=== PATIENT | male | born 1940 | race Caucasian/White ===

== ENCOUNTER 2018-02-09 12:05 | Emergency (ER) | payer MEDICARE ==
[~2018-02-09] VITALS: Ht 177.8 cm; Wt 65.0 kg
[~2018-02-09 12:05] MED LIST: ARTIDRO EACH EYE; ARTISOL2 EACH EYE; CARB25TA16 PO; FURO40TA PO; METO1TAB9 PO; POTA-163 PO; ROTI8DIS T-DERMAL; SPIR25TA PO; SYST0.4D2 EACH EYE; TERA5CAP3 PO; WARF-20 PO
[2018-02-09 12:26] VITALS: BP 156/108; PULSE 77; RESP 16; TEMP 98.2; O2SAT 100
--- NOTE | 2018-02-09 13:35 | RADRPT ---
EXAM DATE/TIME: 02/09/2018 13:22 [place] COMPARISON: No previous studies available for comparison. INDICATIONS : Syncope, hit head RADIATION DOSE: 56.35 CTDIvol (mGy) MEDICAL HISTORY : Parkinson's. Hypertension. SURGICAL HISTORY : None. ENCOUNTER: Initial ACUITY: 1 day PAIN SCALE: 0/10 LOCATION: cranial TECHNIQUE: Multiple contiguous axial images were obtained of the head. Using automated exposure control and adj ustment of the mA and/or kV according to patient size, radiation dose was kept as low as reasonably a chievable to obtain optimal diagnostic quality images. DICOM format image data is available electro nically for review and comparison. FINDINGS: There is patchy mild to moderately diminished attenuation in periventricular white matter. No evidenc e of intracranial mass or hemorrhage. As nothing to suggest acute infarction. The ventricles are symm etric and normal. Cisterna magna is mildly prominent. CONCLUSION: Patchy probable chronic ischemic white matter changes. No definite acute findings. Mani Naranjo MD on February 09, 2018 at 13:32 Board Certified Radiologist. This report was verified electronically.
== END 2018-02-09 13:32 | disposition left against medical advice (07) ==
LOC: NED 12:05
DX: R55 Syncope and collapse (principal)
CPT/HCPCS: 70450; 99281

== ENCOUNTER 2018-08-05 12:13 | Observation (INO) ==
--- NOTE | 2018-08-05 12:58 | ED ---
HPI General Chief Complaint: Dizziness Stated Complaint: Dizzyness Time Seen by Provider: 08/05/18 12:16 Source: patient Mode of arrival: ambulatory Limitations: no limitations History of Present Illness HPI Narrative: Patient is a 78-year-old male that presents via EMS for the evaluation of dizziness that the patient states has been going on for the past 1 -2months. The patient states that today he and his went to see a provider at an urgent care clinic because last night he had a dizzy episode that caused him to fall on his knees. The provider at the urgent care recommended that he been seen in the ER. The patient stats that he has been feeling dizzy and falling more than usual. He states that a couple of days ago he fell within his home and hit the front of his head and left lower back. The patient states that he is currently experiencing pain of his left lower back which he states has been constant since his fall a couple of days ago. He rates his pain as a 6/10 on a pain scale. The patient denies any knee pain from his fall yesterday. The patient describes his dizziness as a sensation that the room is slowly spinning around him. He says that the episodes last around 20 seconds. He denies ever feeling like he has lost consciousness and he remembers everything before and after the dizziness episode. Upon review of symptoms he reports fatigue, and some shortness of breath upon exertion which he states is normal for him. He denies chest pain or palpitations. He denies nausea, vomiting. He denies headache, numbness, or any paraesthesias of the upper or lower extremities. Related Data Home Medications Medication Instructions Recorded Confirmed carbidopa-levodopa 1 tab PO 5 TIMES A DAY 08/05/18 08/05/18 furosemide 20 mg PO DAILY 08/05/18 08/05/18 metoprolol succinate 1.5 tab PO DAILY 08/05/18 08/05/18 spironolactone 25 mg PO DAILY 08/05/18 08/05/18 tamsulosin 0.4 mg PO DAILY 08/05/18 08/05/18 thiamine HCl (vitamin B1) 50 mg PO DAILY 08/05/18 08/05/18 warfarin 2.5 mg PO 3XW 08/05/18 08/05/18 warfarin 3 mg PO 4XW 08/05/18 08/05/18 Allergies Allergy/AdvReac Type Severity Reaction Status Date / Time No Known Allergies Allergy Uncoded 08/16/17 11:14 Review of Systems ROS: all other systems reviewed are negative FOR[facility]LY [facility] Medical History Medical History Afib (Acute) Hypertension (Acute) Parkinson disease (Acute) Social History Social History Substance History: No History of Abuse Second Hand Smoke Exposure: No Smoking Status: Never smoker How Often Do You Have a Drink Containing Alcohol: Never Recent Travel in [facility] within the Last 8 Weeks: No Recent Out of Country Travel within the Last 8 Weeks: No Immunization History Tetanus Immunization: Unsure Hx Influenza Vaccine This Season: Yes Exam Narrative Exam Narrative: GENERAL: Anxious, well groomed SKIN: Warm and dry. HEAD: Atraumatic. Normocephalic. EYES: Pupils equal and round. No scleral icterus. No injection or drainage. ENT: No nasal bleeding or discharge. Mucous membranes pink and moist. Tongue is midline. No uvula deviation. NECK: Trachea midline. No JVD. CARDIOVASCULAR: Regular rate and rhythm. RESPIRATORY: No accessory muscle use. Clear to auscultation. Breath sounds equal bilaterally. GASTROINTESTINAL: Abdomen soft, non-tender, nondistended. Hepatic and splenic margins not palpable. MUSCULOSKELETAL: Extremities without clubbing, cyanosis, or edema. No obvious deformities. Full ROM of the upper and lower extremities bilaterally. Bruising on the left side of face and the left upper back. No lumbar, thoracic, cervical tenderness to palpation. NEUROLOGICAL: Awake and alert. No obvious cranial nerve deficits. Motor grossly within normal limits. Five out of 5 muscle strength in the arms and legs. Normal speech. PSYCHIATRIC: Appropriate mood and affect; insight and judgment normal. Course Initial Documented Vital Signs Pulse Rate 87 08/05/18 12:23 Respiratory Rate 18 08/05/18 12:23 Blood Pressure 199/116 H 08/05/18 12:23 Pulse Oximetry 100 08/05/18 12:23 Last Documented Vital Signs Pulse Rate 73 08/05/18 16:30 Respiratory Rate 16 08/05/18 16:30 Blood Pressure 159/75 H 08/05/18 16:30 Pulse Oximetry 100 08/05/18 16:30 Medical Decision Making MDM Narrative Medical decision making narrative: 78 yo male here for evaluation of dizziness and near syncope. Labs and imaging ordered. Labs and imaging showed no sign of acute disease at this time. There is deafly concern for syncope. Recommend admission for further evaluation and treatment. Patient and family agree with this. Case discussed with my attending Dr. Chau who agrees with plan. Case discussed with Dr. Castro who agrees to admission to his service. Medical Screen Exam Complete: Yes Emergency Medical Condition: Yes Differential Diagnosis Differential Diagnosis: syncope vs presyncope vs dizziness vs cardiac disease vs arrhythmia vs electrolyte abnormality vs head injury vs fracture Medical Records Medical records reviewed: Yes I reviewed the patient's medical records. Lab Data Lab results reviewed: Yes I reviewed the patient's lab results. Lab results narrative: troponin negative CKMB negative UA showed some blood. Result diagrams: 08/05/18 12:40 08/05/18 12:40 Lab Results 08/05/18 08/05/18 08/05/18 Range/Units 12:40 12:40 12:40 WBC 7.2 (4.0-11.0) th/mm3 RBC 4.46 L (4.50-5.90) mil/mm3 Hgb 14.5 (13.0-17.0) gm/dL Hct 43.3 (39.0-51.0) % MCV 97.0 (80.0-100.0) fL MCH 32.6 (27.0-34.0) pg MCHC 33.6 (32.0-36.0) % RDW 14.0 (11.6-17.2) % Plt Count 229 (150-450) th/mm3 MPV 7.8 (7.0-11.0) fL Neut % (Auto) 78.4 H (16.0-70.0) % Lymph % (Auto) 11.2 (9.0-44.0) % [place] % (Auto) 7.3 (0.0-8.0) % Eos % (Auto) 2.8 (0.0-4.0) % Baso % (Auto) 0.3 (0.0-2.0) % Neut # (Auto) 5.7 (1.8-7.7) th/mm3 Lymph # (Auto) 0.8 L (1.0-4.8) th/mm3 [place] # (Auto) 0.5 (0.0-0.9) th/mm3 Eos # (Auto) 0.2 (0.0-0.4) th/mm3 Baso # (Auto) 0.0 (0.0-0.2) th/mm3 WBC Differential . Differential Comment Auto diff final PT Cancelled INR Cancelled APTT (24.3-30.1) sec Sodium 139 (136-145) meq/L Potassium 4.9 (3.5-5.1) meq/L Chloride 104 (98-107) meq/L Carbon Dioxide 28.4 (21.0-32.0) meq/L Anion Gap 7 (5-15) meq/L BUN 22 H (7-18) mg/dL Creatinine 1.16 (0.60-1.30) mg/dL Estimated GFR 61 L (>89) mL/min Random Glucose 96 (74-106) mg/dL Calcium 8.7 (8.5-10.1) mg/dL Total Bilirubin 2.1 H (0.2-1.0) mg/dL AST 21 (15-37) U/L ALT 20 (12-78) U/L Alkaline Phosphatase 143 H (45-117) U/L Total Creatine Kinase 59 (39-308) U/L Troponin I Less than 0.02 L (0.02-0.05) ng/mL Total Protein 7.4 (6.4-8.2) g/dL Albumin 3.7 (3.4-5.0) g/dL Urine Color (Yellw/Straw) Urine Clarity (Clear) Urine pH (5.0-8.5) Ur Specific [place] (1.002-1.035) Urine Protein (Neg-Trace) mg/dL Urine Glucose (UA) (Negative) mg/dL Urine Ketones (Negative) mg/dL Urine Occult Blood (Negative) Urine Nitrate (Negative) Urine Bilirubin (Negative) Urine Urobilinogen (Less than 2) mg/dL Ur Leukocyte Esterase (Negative) Urine RBC (0-3) /hpf Urine WBC (0-5) /hpf Ur Squamous Epith Cells (0-5) /hpf Hyaline Casts (0-3) /lpf Urine Mucus (Occasional) /lpf Micro UA Comment Ur Microscopic Review Urine Culture Comments 08/05/18 08/05/18 Range/Units 12:40 13:53 WBC (4.0-11.0) th/mm3 RBC (4.50-5.90) mil/mm3 Hgb (13.0-17.0) gm/dL Hct (39.0-51.0) % MCV (80.0-100.0) fL MCH (27.0-34.0) pg MCHC (32.0-36.0) % RDW (11.6-17.2) % Plt Count (150-450) th/mm3 MPV (7.0-11.0) fL Neut % (Auto) (16.0-70.0) % Lymph % (Auto) (9.0-44.0) % [place] % (Auto) (0.0-8.0) % Eos % (Auto) (0.0-4.0) % Baso % (Auto) (0.0-2.0) % Neut # (Auto) (1.8-7.7) th/mm3 Lymph # (Auto) (1.0-4.8) th/mm3 [place] # (Auto) (0.0-0.9) th/mm3 Eos # (Auto) (0.0-0.4) th/mm3 Baso # (Auto) (0.0-0.2) th/mm3 WBC Differential Differential Comment PT 23.4 H INR 2.3 APTT 31.5 H (24.3-30.1) sec Sodium (136-145) meq/L Potassium (3.5-5.1) meq/L Chloride (98-107) meq/L Carbon Dioxide (21.0-32.0) meq/L Anion Gap (5-15) meq/L BUN (7-18) mg/dL Creatinine (0.60-1.30) mg/dL Estimated GFR (>89) mL/min Random Glucose (74-106) mg/dL Calcium (8.5-10.1) mg/dL Total Bilirubin (0.2-1.0) mg/dL AST (15-37) U/L ALT (12-78) U/L Alkaline Phosphatase (45-117) U/L Total Creatine Kinase (39-308) U/L Troponin I (0.02-0.05) ng/mL Total Protein (6.4-8.2) g/dL Albumin (3.4-5.0) g/dL Urine Color Yellow (Yellw/Straw) Urine Clarity Clear (Clear) Urine pH 6.0 (5.0-8.5) Ur Specific [place] 1.014 (1.002-1.035) Urine Protein Negative (Neg-Trace) mg/dL Urine Glucose (UA) Negative (Negative) mg/dL Urine Ketones Trace H (Negative) mg/dL Urine Occult Blood Small H (Negative) Urine Nitrate Negative (Negative) Urine Bilirubin Negative (Negative) Urine Urobilinogen Less than 2 (Less than 2) mg/dL Ur Leukocyte Esterase Negative (Negative) Urine RBC Less than 1 (0-3) /hpf Urine WBC 1 (0-5) /hpf Ur Squamous Epith Cells <1 (0-5) /hpf Hyaline Casts 3 (0-3) /lpf Urine Mucus Few H (Occasional) /lpf Micro UA Comment Culture not ind Ur Microscopic Review Not Reportable Urine Culture Comments Culture not ind Imaging Data Attestation: I personally reviewed and interpreted this imaging study as follows : Radiologist's impression: Chest X-Ray 08/05/18 12:29 CONCLUSION: 1. Cardiomegaly. 2. No evidence of pulmonary edema or focal pulmonary infiltrate. 3. Degenerative changes and scoliosis of the thoracic spine. Head CT 08/05/18 12:29 CONCLUSION: 1. No acute infarct, acute hemorrhage, midline shift or extra-axial fluid collections. 2. Moderate periventricular and subcortical white matter small vessel ischemic changes bilaterally. 3. CSF collection within the midline of the posterior fossa posteriorly which is stable and may represent a small arachnoid cyst or prominent cisterna magna. . Abdomen/Pelvis CT 08/05/18 14:06 CONCLUSION: 1. Negative for acute traumatic injury. 2. Degenerative changes in the lower lumbar spine 3. Prominent prostate with trabeculated bladder. Chest CT 08/05/18 14:06 CONCLUSION: 1. No pneumothorax. 2. Clustered nodularity in the lingula and medial right middle lobe, likely infectious/inflammatory process. 3. Right atrial enlargement. 4. Minimal anterior wedging of the T12 vertebral body, which can be physiologic. 5. Additional details as above. ECG Data Attestation: I personally reviewed and interpreted this ECG as follows: Interpretation: EKG shows atrial fibrillation but no sign of acute ischemia read by me and attending. Rate of 83 bpm. Discharge Plan Discharge Disposition Patient Disposition: 30 Still Patient Discharge Details Diagnosis: Pre-syncope, Orthostatic hypotension, Fall Physicians Team ED Provider: Shiva Beebe ED Midlevel Provider: Elias Covington Primary Care Provider: UNKNOWN, Attending Provider: Devyn Castro Discharge Interventions Interventions: Vital Signs Last Done: 08/05/18 16:30 Status ED Status: Admitted Observation Patient
[2018-08-05 13:03] LABS: Baso % (Auto) 0.3 % (0.0-2.0); Eos # (Auto) 0.2 th/mm3 (0.0-0.4); Eos % (Auto) 2.8 % (0.0-4.0); Hematocrit 43.3 % (39.0-51.0); Hemoglobin 14.5 gm/dL (13.0-17.0); Lymph # (Auto) 0.8 th/mm3 (1.0-4.8); Lymph % (Auto) 11.2 % (9.0-44.0); Mean Corpuscular HGB Conc 33.6 % (32.0-36.0); Mean Corpuscular Hemoglobin 32.6 pg (27.0-34.0); Mean Platelet Volume 7.8 fL (7.0-11.0); Mono # (Auto) 0.5 th/mm3 (0.0-0.9); Mono % (Auto) 7.3 % (0.0-8.0); Neut # (Auto) 5.7 th/mm3 (1.8-7.7); Neut % (Auto) 78.4 % (16.0-70.0); Platelet Count 229 th/mm3 (150-450); Red Blood Count 4.46 mil/mm3 (4.50-5.90); White Blood Count 7.2 th/mm3 (4.0-11.0)
[2018-08-05 13:13] LABS: Activated Partial Thrombo Time 31.5 sec (24.3-30.1); INR 2.3 Ratio; Prothrombin Time 23.4 sec (9.8-11.6)
[2018-08-05 13:31] LABS: Alanine Aminotransferase 20 U/L (12-78); Albumin 3.7 g/dL (3.4-5.0); Anion Gap 7 meq/L (5-15); Aspartate Aminotransferase 21 U/L (15-37); Blood Urea Nitrogen 22 mg/dL (7-18); Calcium 8.7 mg/dL (8.5-10.1); Carbon Dioxide 28.4 meq/L (21.0-32.0); Chloride 104 meq/L (98-107); Glomerular Filtration Rate 61 mL/min (>89); Glucose,Random 96 mg/dL (74-106); Potassium 4.9 meq/L (3.5-5.1); Sodium 139 meq/L (136-145)
[2018-08-05 13:34] LABS: Alkaline Phosphatase 143 U/L (45-117); Total Protein 7.4 g/dL (6.4-8.2)
--- NOTE | 2018-08-05 13:42 | XR ---
EXAM DATE: 08/05/2018 1:10 PM EDT AGE/SEX: 78 years / Male INDICATIONS: Dizzy and falling. CLINICAL DATA: This is the patient's initial encounter. Patient reports that signs and symptoms have been present for 1 day and indicates a pain score of 0/10. MEDICAL/SURGICAL HISTORY: . a-fib, Parkinson's None. COMPARISON: POI, XR CHEST PA AND LAT, 10/17/2015. . FINDINGS: The heart is enlarged. The pulmonary vascular pattern is normal. The lungs are clear. Degenerative ch anges and scoliosis of the thoracic spine are noted. CONCLUSION: 1. Cardiomegaly. 2. No evidence of pulmonary edema or focal pulmonary infiltrate. 3. Degenerative changes and scoliosis of the thoracic spine. Electronically signed by: Pipo Mccullough MD 08/05/2018 1:41 PM EDT
[2018-08-05 13:45] LABS: Creatine Kinase 59 U/L (39-308)
[2018-08-05 14:17] LABS: Bilirubin,Urine Negative (Negative); Clarity,Urine Clear (Clear); Color,Urine Yellow (Yellw/Straw); Glucose,Urine (UA) Negative (Negative); Hyaline Casts,Urine 3 /lpf (0-3); Leukocyte Esterase,Urine Negative (Negative); Mucus,Urine Few /lpf (Occasional); Nitrite,Urine Negative (Negative); Specific Gravity,Urine 1.014 (1.002-1.035); Squamous Epithelial Cell,Urine <1 /hpf (0-5)
--- NOTE | 2018-08-05 14:17 | CT ---
EXAM DATE: 08/05/2018 2:06 PM EDT AGE/SEX: 78 years / Male INDICATIONS: Dizziness. Syncopal episodes. CLINICAL DATA: This is the patient's initial encounter. Patient reports that signs and symptoms have been present for 3 days and indicates a pain score of 0/10. MEDICAL/SURGICAL HISTORY: Hypertension. Parkinson's disease. A-fib. None. RADIATION DOSE: 56.35 CTDI (mGy) COMPARISON: . TECHNIQUE: CT of the head without contrast. Using automated exposure control and adjustment of the mA and/or kV according to patient size, radiation dose was kept as low as reasonably achievable to ob tain optimal diagnostic quality images. DICOM format image data is available electronically for revi ew and comparison. FINDINGS: Cerebrum: The ventricles are normal for age. No evidence of midline shift, mass lesion, hemorrhage or acute infarction. No extraaxial fluid collections are seen. Moderate periventricular and subcorti tavon white matter small vessel ischemic changes are noted and are stable. Posterior Fossa: The cerebellum and brainstem are intact. The 4th ventricle is midline. The cerebe llopontine angle is unremarkable. There is a CSF collection within the midline of the posterior fossa posteriorly which is stable and may represent a small arachnoid cyst or prominent cisterna magna. Extracranial: The visualized portion of the orbits is intact. Skull: The calvaria is intact. No evidence of skull fracture. CONCLUSION: 1. No acute infarct, acute hemorrhage, midline shift or extra-axial fluid collections. 2. Moderate periventricular and subcortical white matter small vessel ischemic changes bilaterally. 3. CSF collection within the midline of the posterior fossa posteriorly which is stable and may repr esent a small arachnoid cyst or prominent cisterna magna. . Electronically signed by: Pipo Mccullough MD 08/05/2018 2:15 PM EDT
--- NOTE | 2018-08-05 16:20 | CT ---
EXAM DATE: 08/05/2018 3:55 PM EDT AGE/SEX: 78 years / Male INDICATIONS: Trauma, Fall CLINICAL DATA: This is the patient's initial encounter. Patient reports that signs and symptoms have been present for 1 day and indicates a pain score of 0/10. MEDICAL/SURGICAL HISTORY: Hypertension. Atrial Fib, Parkinson's None. RADIATION DOSE: 5.19 CTDI (mGy) ; Combined studies COMPARISON: No prior exams available for comparison. TECHNIQUE: Multiple contiguous axial images were obtained through the chest during bolus infusion of 97ML ml Omnipaque 350 (iohexol) nonionic water-soluble contrast as a cumulative dose for multiple e xams. Images were obtained in suspended respiration using multiple row detector helical technique. Using automated exposure control and adjustment of the mA and/or kV according to patient size, radia tion dose was kept as low as reasonably achievable to obtain optimal diagnostic quality images. DICO M format image data is available electronically for review and comparison. FINDINGS: Lungs: The lungs are symmetrically aerated. Biapical pleural-parenchymal scarring. Minimal atelectas is in the posterior lower lobes. Clustered nodularity in the lingula and medial right middle lobe, li carmela an infectious/inflammatory process. No pneumothorax. Mediastinum: There is good visualization of the great vessels of the middle mediastinum. Atheroscler otic calcification of the aorta, great vessels, and coronary arteries. Right atrial enlargement. No e vidence of mediastinal or hilar adenopathy. Pleurae: No pleural effusion. Axillae: Unremarkable. Bony Structures: Minimal anterior wedging of the T12 vertebral body, which can be physiologic. Mild rightward curvature of the thoracic spine. Diffuse degenerative changes of the spine. Sclerotic foci in the T11 vertebral body, favored to represent bone islands. Miscellaneous: The examination was extended to include the upper abdomen, and both adrenal glands ar e normal in size and configuration. Left renal cyst. Please see separate report from same day CT abdo men/pelvis for further details of the abdomen. CONCLUSION: 1. No pneumothorax. 2. Clustered nodularity in the lingula and medial right middle lobe, likely infectious/inflammatory process. 3. Right atrial enlargement. 4. Minimal anterior wedging of the T12 vertebral body, which can be physiologic. 5. Additional details as above. Electronically signed by: Christina Leigh MD 08/05/2018 4:19 PM EDT
[2018-08-05] MEDS ORDERED: Warfarin Consult Pharmacy OTHER PRN (16:29)
--- NOTE | 2018-08-05 16:32 | CT ---
EXAM DATE: 08/05/2018 3:54 PM EDT AGE/SEX: 78 years / Male INDICATIONS: Trauma, Fall CLINICAL DATA: This is the patient's initial encounter. Patient reports that signs and symptoms have been present for 1 day and indicates a pain score of 0/10. MEDICAL/SURGICAL HISTORY: Hypertension. Atrial Fib, Parkinson's None. ORAL CONTRAST: No oral contrast ingested. RADIATION DOSE: 5.19 CTDI (mGy) ; Combined studies COMPARISON: . TECHNIQUE: Multiple contiguous axial images were obtained through the abdomen and pelvis following b olus infusion of 97ML ml Omnipaque 350 (iohexol) nonionic water-soluble contrast as a cumulative do se for multiple exams. No oral contrast ingested. Using automated exposure control and adjustment of the mA and/or kV according to patient size, radiation dose was kept as low as reasonably achievable to obtain optimal diagnostic quality images. DICOM format image data is available electronically for review and comparison. FINDINGS: Lower lungs are clear. There is mild cardiomegaly without pericardial effusion. The liver is mildly inhomogeneous but otherwise unremarkable Gallbladder appears normal Pancreas and spleen appear normal Right kidney is unremarkable Prominent extrarenal pelvis on the left with a small 3.5 cm mass projecting from the upper pole of th e left kidney thought to be cyst. The adrenals are unremarkable Extensive vascular calcic ages are noted. Patient has a prominent prostate with some trabeculations of the bladder. Multiple diverticuli are present in the sigmoid colon. There is no free fluid or free air Review of bone windows reveals degenerative changes in the lumbar spine without fracture. . CONCLUSION: 1. Negative for acute traumatic injury. 2. Degenerative changes in the lower lumbar spine 3. Prominent prostate with trabeculated bladder. Electronically signed by: Juan J Burciaga MD 08/05/2018 4:31 PM EDT
[2018-08-05] MEDS ORDERED: Acetaminophen 325 MG Tablet PO PRN (17:07)
--- NOTE | 2018-08-05 17:25 | P.HPIM ---
History of Present Illness Primary Care Physician: UNKNOWN Chief Complaint: Dizziness History of Present Illness: The patient is a 78-year-old male with past medical history of Parkinson's disease and atrial fibrillation who is presenting to the hospital with dizziness and falls. He says he has been having increased falling episodes over the past couple of months. He says he generally has a sensation of dizziness before falling down to the ground. He does not endorse passing out. The past couple of nights he has had falls where he goes down to his knees. He also hit his head and the left side of his body. He says he still has moderate pain where he hit his back and head. He says recently his legs have been giving way. He does follow with a neurologist. He says he also follows with a [employer] software developer who recently adjusted one of his medications. The patient denies any recent travel. He does endorse shortness of breath over the past couple of months. He does endorse a cough recently. He denies any mucus production or fever. Discussed with his family at the bedside. Also discussed with nursing. Review of Systems All other systems reviewed negative except as stated in HPI [facility] - History History Provided By: Patient - Medical History Medical History: Medical History (Last Updated 08/05/18 @ 17:17 by Devyn Castro DO) Afib BPH (benign prostatic hyperplasia) Hypertension Parkinson disease - Surgical History Surgical History: Surgical History (Last Updated 08/05/18 @ 17:17 by Devyn Castro DO) History of right hip replacement - Family History Family History: Family History (Last Updated 08/05/18 @ 17:17 by Devyn Castro DO) Other CAD (coronary artery disease) Cervical cancer Ovarian cancer - Social History I have reviewed the patient's Social History: Yes - Tobacco History Second Hand Smoke Exposure: No Tobacco Use In Past 30 Days: No Smoking Status: Never smoker - Alcohol History How Often Do You Have a Drink Containing Alcohol: Monthly or less - Substance Use History Substance History: No History of Abuse - Travel History Recent Travel in the [place] Within the Last 8 Weeks: No Recent Travel Out of the Country Within the Last 8 Weeks: No - Immunization History Tetanus Immunization: Unsure Hx Influenza Vaccine This Season: Yes Medications and Allergies Active Medications: Active Medications Acetaminophen (Tylenol) 650 mg PO Q4H PRN PRN Reason: Temp > 100.4, pain 1-5 Carbidopa/Levodopa (Sinemet 25/100 Mg) 1 tab PO QID [facility] Sodium Chloride (Ns Inj) 1,000 mls @ 100 mls/hr IV.CONT .Q10H [place] Stop: 08/06/18 13:14 Azithromycin 500 mg/ Sodium (Chloride) 250 mls @ 250 mls/hr IV.SIG Q24H [place] Ceftriaxone Sodium 1,000 mg/ (Sodium Chloride) 100 mls @ 200 mls/hr IV.SIG Q24H [place] Metoprolol Succinate (Toprol Xl) 75 mg PO DAILY [facility] Miscellaneous (Pill Splitter) 1 each OTHER UNSCH PRN PRN Reason: SEE LABEL COMMENTS Pharmacy Profile Note (Coumadin Consult Pharmacy) 1 each OTHER UNSCH PRN PRN Reason: PHARMACY DOCUMENTATION Tamsulosin HCl (Flomax) 0.4 mg PO DAILY [facility] Thiamine HCl (Vitamin B1) 50 mg PO DAILY [facility] Warfarin Sodium (Coumadin) 2.5 mg PO SuTuThSa@1600 [facility] Warfarin Sodium (Coumadin) 3 mg PO MoWeFr@1600 [facility] Allergies Allergy/AdvReac Type Severity Reaction Status Date / Time No Known Allergies Allergy Uncoded 08/16/17 11:14 Home Medications Medication Instructions Recorded Confirmed Type carbidopa-levodopa 1 tab PO QID 08/05/18 08/05/18 History furosemide 20 mg PO DAILY 08/05/18 08/05/18 History metoprolol succinate 1.5 tab PO DAILY 08/05/18 08/05/18 History spironolactone 25 mg PO DAILY 08/05/18 08/05/18 History tamsulosin 0.4 mg PO DAILY 08/05/18 08/05/18 History thiamine HCl (vitamin B1) 50 mg PO DAILY 08/05/18 08/05/18 History warfarin 2.5 mg PO 3XW 08/05/18 08/05/18 History warfarin 3 mg PO 4XW 08/05/18 08/05/18 History Exam Vital signs: Vital Signs 08/05/18 12:23 08/05/18 12:28 08/05/18 14:20 Pulse Rate 87 69 72 Respiratory Rate 18 16 16 Blood Pressure 199/116 H 179/106 H 124/66 Pulse Oximetry 100 98 100 08/05/18 16:30 Pulse Rate 73 Respiratory Rate 16 Blood Pressure 159/75 H Pulse Oximetry 100 Intake & Output 0908/05/18 08/05/18 18:59 06:59 18:59 Weight 72.575 kg Narrative: GENERAL: NAD. SKIN: Warm and dry. HEAD: Atraumatic. Normocephalic. EYES: Pupils equal and round. No scleral icterus. No injection or drainage. ENT: No nasal bleeding or discharge. Mucous membranes pink and moist. Tongue is midline. No uvula deviation. NECK: Trachea midline. No JVD. CARDIOVASCULAR: Irregularly irregular rhythm. RESPIRATORY: No accessory muscle use. Clear to auscultation. Breath sounds equal bilaterally. GASTROINTESTINAL: Abdomen soft, non-tender, nondistended. Hepatic and splenic margins not palpable. MUSCULOSKELETAL: Extremities without clubbing, cyanosis, or edema. No obvious deformities. Full ROM of the upper and lower extremities bilaterally. Bruising on the left side of face and the left upper back. No lumbar, thoracic, cervical tenderness to palpation. NEUROLOGICAL: Awake and alert. No obvious cranial nerve deficits. Motor grossly within normal limits. Five out of 5 muscle strength in the arms and legs. Normal speech. PSYCHIATRIC: Appropriate mood and affect; insight and judgment normal. Results - Labs CBC & Chem 7: 08/05/18 12:40 08/05/18 12:40 Labs: Short CBC 08/05/18 Range/Units 12:40 WBC 7.2 (4.0-11.0) th/mm3 Hgb 14.5 (13.0-17.0) gm/dL Hct 43.3 (39.0-51.0) % Plt Count 229 (150-450) th/mm3 BMP 08/05/18 12:40 Sodium 139 Potassium 4.9 Chloride 104 Carbon Dioxide 28.4 BUN 22 H Creatinine 1.16 Calcium 8.7 Cardiac Enzymes 08/05/18 Range/Units 12:40 Total Creatine Kinase 59 (39-308) U/L Troponin I Less than 0.02 L (0.02-0.05) ng/mL Liver Function 08/05/18 Range/Units 12:40 Total Bilirubin 2.1 H (0.2-1.0) mg/dL AST 21 (15-37) U/L ALT 20 (12-78) U/L Alkaline Phosphatase 143 H (45-117) U/L Albumin 3.7 (3.4-5.0) g/dL Urine 08/05/18 Range/Units 13:53 Urine Color Yellow (Yellw/Straw) Urine Clarity Clear (Clear) Urine pH 6.0 (5.0-8.5) Ur Specific [place] 1.014 (1.002-1.035) Urine Protein Negative (Neg-Trace) mg/dL Urine Glucose (UA) Negative (Negative) mg/dL - Imaging Impressions Chest X-Ray 08/05/18 12:29 CONCLUSION: 1. Cardiomegaly. 2. No evidence of pulmonary edema or focal pulmonary infiltrate. 3. Degenerative changes and scoliosis of the thoracic spine. Head CT 08/05/18 12:29 CONCLUSION: 1. No acute infarct, acute hemorrhage, midline shift or extra-axial fluid collections. 2. Moderate periventricular and subcortical white matter small vessel ischemic changes bilaterally. 3. CSF collection within the midline of the posterior fossa posteriorly which is stable and may represent a small arachnoid cyst or prominent cisterna magna. . Abdomen/Pelvis CT 08/05/18 14:06 CONCLUSION: 1. Negative for acute traumatic injury. 2. Degenerative changes in the lower lumbar spine 3. Prominent prostate with trabeculated bladder. Chest CT 08/05/18 14:06 CONCLUSION: 1. No pneumothorax. 2. Clustered nodularity in the lingula and medial right middle lobe, likely infectious/inflammatory process. 3. Right atrial enlargement. 4. Minimal anterior wedging of the T12 vertebral body, which can be physiologic. 5. Additional details as above. Caprini VTE Risk Assessment Caprini VTE Risk Assessment: Moderate/High Risk (score >= 2) Caprini Risk Assessment Model: Point Value = 1 Point Value = 2 Point Value = 3 Point Value = 5 Age 41-60 Minor surgery BMI > 25 kg/m2 Swollen legs Varicose veins or History of unexplained or recurrent spontaneous Oral contraceptives or hormone replacement Sepsis (< 1 month) Serious lung disease, including pneumonia (< 1 month) Abnormal pulmonary function Acute myocardial infarction Congestive heart failure (< 1 month) History of inflammatory bowel disease Medical patient at bed rest Age 61-74 Arthroscopic surgery Major open surgery (> 45 min) Laparoscopic surgery (> 45 min) Malignancy Confined to bed (> 72 hours) Immobilizing plaster cast Central venous access Age >= 75 History of VTE Family history of VTE Factor V Leiden Prothrombin [id number] Lupus anticoagulant Anticardiolipin antibodies Elevated serum homocysteine Heparin-induced thrombocytopenia Other congenital or acquired thrombophilia Stroke (< 1 month) Elective arthroplasty Hip, pelvis, or leg fracture Acute spinal cord injury (< 1 month) Prophylaxis Regimen: Total Risk Factor Score Risk Level Prophylaxis Regimen 0-1 Low Early ambulation 2 Moderate Order ONE of the following: *Sequential Compression Device (SCD) *Heparin 5000 units SQ BID 3-4 Higher Order ONE of the following medications: *Heparin 5000 units SQ TID *Enoxaparin/Lovenox 40 mg SQ daily (WT < 150 kg, CrCl > 30 mL/min) *Enoxaparin/Lovenox 30 mg SQ daily (WT < 150 kg, CrCl > 10-29 mL/min) *Enoxaparin/Lovenox 30 mg SQ BID (WT < 150 kg, CrCl > 30 mL/min) AND/OR *Sequential Compression Device (SCD) 5 or more Highest Order ONE of the following medications: *Heparin 5000 units SQ TID (Preferred with Epidurals) *Enoxaparin/Lovenox 40 mg SQ daily (WT < 150 kg, CrCl > 30 mL/min) *Enoxaparin/Lovenox 30 mg SQ daily (WT < 150 kg, CrCl > 10-29 mL/min) *Enoxaparin/Lovenox 30 mg SQ BID (WT < 150 kg, CrCl > 30 mL/min) AND *Sequential Compression Device (SCD) Assessment and Plan - Plan Dizziness/ Falls/ Parkinsons The patient endorses increased dizziness and falls recently. Likely a manifestation of his autonomic instability from his Parkinson's disease. Could also be secondary to medications, atrial fibrillation, uncontrolled HTN or bradycardia. EKG with A fib, rate controlled, no acute ischemia. -telemetry. -physical therapy. -consult his neurologist, Dr. Perkins. -trend trops. -neuro checks. -fall precautions. -check a B12 level and TSH. -orthostatic vital signs. A fib Rate controlled at this time. INR is therapeutic. -continue Coumadin. Pharmacy assisting with dosing. -telemetry. -continue metoprolol, monitor for bradycardia. HTN Uncontrolled. Wide fluctuations in blood pressure may be contributing to dizziness. -continue home regimen of metoprolol and monitor. -Vasotec as needed. PPx: Coumadin
[2018-08-05] MEDS: Sod Chloride 0.9% Inj 1,000 ML IV.CONT SCH (18:21)
[2018-08-05] MEDS: Azithromycin Inj 500 MG in Sodium Chlor 0.9% Inj 250 ML IV.SIG SCH (18:58)
[2018-08-06 02:57] LABS: Baso % (Auto) 0.5 % (0.0-2.0); Eos # (Auto) 0.3 th/mm3 (0.0-0.4); Eos % (Auto) 4.2 % (0.0-4.0); Hematocrit 41.8 % (39.0-51.0); Hemoglobin 14.3 gm/dL (13.0-17.0); Lymph # (Auto) 1.2 th/mm3 (1.0-4.8); Lymph % (Auto) 14.6 % (9.0-44.0); Mean Corpuscular HGB Conc 34.3 % (32.0-36.0); Mean Corpuscular Hemoglobin 32.8 pg (27.0-34.0); Mean Corpuscular Volume 95.7 fL (80.0-100.0); Mono # (Auto) 0.6 th/mm3 (0.0-0.9); Neut # (Auto) 5.9 th/mm3 (1.8-7.7); Neut % (Auto) 72.7 % (16.0-70.0); Platelet Count 207 th/mm3 (150-450); Red Blood Count 4.37 mil/mm3 (4.50-5.90); Red Cell Distribution Width 14.1 % (11.6-17.2); White Blood Count 8.1 th/mm3 (4.0-11.0)
[2018-08-06 03:08] LABS: INR 1.9 Ratio; Prothrombin Time 19.4 sec (9.8-11.6)
[2018-08-06 03:30] LABS: Alanine Aminotransferase 7 U/L (12-78); Albumin 3.4 g/dL (3.4-5.0); Anion Gap 9 meq/L (5-15); Aspartate Aminotransferase 17 U/L (15-37); Blood Urea Nitrogen 22 mg/dL (7-18); Calcium 8.7 mg/dL (8.5-10.1); Carbon Dioxide 28.4 meq/L (21.0-32.0); Chloride 104 meq/L (98-107); Glomerular Filtration Rate 62 mL/min (>89); Glucose,Random 87 mg/dL (74-106); Potassium 4.8 meq/L (3.5-5.1); Sodium 141 meq/L (136-145)
[2018-08-06 03:32] LABS: Alkaline Phosphatase 129 U/L (45-117); Total Protein 6.9 g/dL (6.4-8.2)
[2018-08-06 03:43] LABS: Vitamin B12 373 pg/mL (193-986)
[2018-08-06] MEDS: Sod Chloride 0.9% Inj 1,000 ML IV.CONT SCH (06:42)
--- NOTE | 2018-08-06 12:28 | P.CONNEU ---
History of Present Illness Service: Neurology Primary Care Provider: UNKNOWN Family Provider: Pepe Lechuga MD Chief Complaint: Dizziness History of Present Illness: 70-year-old gentleman admitted for dizziness for the past 3 days. Occurs when he is ambulating. Feels lightheaded weak and will need to sitdown or else he may pass out. Denies any vertigo symptoms. He has been experiencing mild lightheadedness and going from sitting to standing position lately. He has underlying Parkinson disease and is followed up in the outpatient setting. Denies any current headache neck pain focal weakness. Wondering if he can go home Blood pressure on arrival in ER 185/111 Review of Systems All other systems reviewed negative except as stated in HPI [facility] - History History Provided By: Patient - Medical History Medical History: Medical History (Last Reviewed 08/06/18 @ 06:26 by Cara Aden) Afib BPH (benign prostatic hyperplasia) Hypertension Parkinson disease - Surgical History Surgical History: Surgical History (Last Reviewed 08/06/18 @ 06:26 by Cara Aden) History of right hip replacement - Family History Family History: Family History (Last Reviewed 08/06/18 @ 06:26 by Cara Aden) Other CAD (coronary artery disease) Cervical cancer Ovarian cancer - Tobacco History Second Hand Smoke Exposure: No Tobacco Use In Past 30 Days: No Smoking Status: Never smoker - Alcohol History How Often Do You Have a Drink Containing Alcohol: Monthly or less - Substance Use History Substance History: No History of Abuse - Travel History Recent Travel in the [place] Within the Last 8 Weeks: No Recent Travel Out of the Country Within the Last 8 Weeks: No - Immunization History Tetanus Immunization: Unsure Hx Influenza Vaccine This Season: Yes Medications and Allergies Active Medications: Active Medications Acetaminophen (Tylenol) 650 mg PO Q4H PRN PRN Reason: Temp > 100.4, pain 1-5 Carbidopa/Levodopa (Sinemet 25/100 Mg) 1 tab PO QID [facility] Last Admin: 08/05/18 20:35 Dose: 1 tab Enalaprilat (Vasotec Inj) 1.25 mg IV.PUSH Q6H PRN PRN Reason: SBP> OR = 180, DBP> OR = 100 Last Admin: 08/06/18 03:33 Dose: 1.25 mg Sodium Chloride (Ns Inj) 1,000 mls @ 100 mls/hr IV.CONT .Q10H [place] Stop: 08/06/18 13:14 Last Admin: 08/06/18 06:42 Dose: 100 mls/hr Azithromycin 500 mg/ Sodium (Chloride) 250 mls @ 250 mls/hr IV.SIG Q24H [facility] Last Infusion: 08/05/18 19:58 Dose: Infused Ceftriaxone Sodium 1,000 mg/ (Sodium Chloride) 100 mls @ 200 mls/hr IV.SIG Q24H [facility] Last Infusion: 08/05/18 18:51 Dose: Infused Metoprolol Succinate (Toprol Xl) 75 mg PO DAILY [facility] Miscellaneous (Pill Splitter) 1 each OTHER UNSCH PRN PRN Reason: SEE LABEL COMMENTS Pharmacy Profile Note (Coumadin Consult Pharmacy) 1 each OTHER UNSCH PRN PRN Reason: PHARMACY DOCUMENTATION Tamsulosin HCl (Flomax) 0.4 mg PO DAILY [facility] Thiamine HCl (Vitamin B1) 50 mg PO DAILY [facility] Warfarin Sodium (Coumadin) 2.5 mg PO SuTuThSa@1600 [facility] Warfarin Sodium (Coumadin) 3 mg PO MoWeFr@1600 [facility] Allergies Allergy/AdvReac Type Severity Reaction Status Date / Time No Known Allergies Allergy Uncoded 08/16/17 11:14 Home Medications Medication Instructions Recorded Confirmed Type carbidopa-levodopa 1 tab PO QID 08/05/18 08/05/18 History furosemide 20 mg PO DAILY 08/05/18 08/05/18 History metoprolol succinate 1.5 tab PO DAILY 08/05/18 08/05/18 History spironolactone 25 mg PO DAILY 08/05/18 08/05/18 History tamsulosin 0.4 mg PO DAILY 08/05/18 08/05/18 History thiamine HCl (vitamin B1) 50 mg PO DAILY 08/05/18 08/05/18 History warfarin 2.5 mg PO 3XW 08/05/18 08/05/18 History warfarin 3 mg PO 4XW 08/05/18 08/05/18 History Exam Vital signs: Vital Signs 08/05/18 14:20 08/05/18 16:30 08/05/18 19:51 Temperature 98.2 F Pulse Rate 72 73 65 Respiratory Rate 16 16 18 Blood Pressure 124/66 159/75 H 89/55 L Pulse Oximetry 100 100 97 08/06/18 00:00 08/06/18 03:23 08/06/18 03:58 Temperature 97.4 F L 98.0 F Pulse Rate 69 61 70 Respiratory Rate 18 16 18 Blood Pressure 154/81 H 185/111 H 178/92 H Pulse Oximetry 97 96 100 08/06/18 04:31 08/06/18 08:00 08/06/18 12:00 Temperature 97.6 F 98.3 F Pulse Rate 67 72 68 Respiratory Rate 14 16 16 Blood Pressure 145/80 H 177/114 H 166/79 H Pulse Oximetry 100 94 L 98 Intake & Output 08/05/18 08/06/18 08/06/18 18:59 06:59 18:59 Intake Total 1580 / 1580 250 / 250 Output Total 350 / 350 200 / 200 Balance 1230 / 1230 250 / 250 -200 / -200 Weight 66 kg Intake: IV 1100 / 1100 250 / 250 NS Inj 1,000 ML @ 100 mls/hr IV 1000 / 1000 .CONT .Q10H [place] Rx#:[id number] Azithromycin Inj 500 MG In NS 250 / 250 Inj 250 ML @ 250 mls/hr IV.SIG Q24H [facility] Rx#:[id number] Rocephin Inj 1,000 MG In NS Inj 100 / 100 100 ML @ 200 mls/hr IV.SIG Q24H [facility] Rx#:[id number] Oral 480 / 480 Output: Urine 350 / 350 200 / 200 Other: # Voids 1 Weight On Admission 65.771 kg Narrative: GENERAL: in NAD, SKIN: Warm and dry. HEAD: Atraumatic. Normocephalic. EYES: Pupils equal and round. No scleral icterus. ENT: No nasal bleeding or discharge. Mucous membranes pink and moist. NECK: Trachea midline. No JVD. CARDIOVASCULAR: Regular rate and rhythm. RESPIRATORY: No accessory muscle use. GASTROINTESTINAL: Abdomen soft, non-tender, nondistended. MUSCULOSKELETAL: Extremities without clubbing, cyanosis, or edema. No obvious deformities. NEUROLOGICAL: Awake and alert. Oriented 3, dysphonic speech facial hypovolemia no aphasia, fluent articulate, No facial asymmetry, OU 3-2mm, eomi, VFF, No drift, Motor grossly within normal limits. Five out of 5 muscle strength in the arms and legs. No tremors. tone normal in all 4 limbs, Sensory normal in all 4 extermities to pin, msr 1-2+ sym, no clonus, planterflexor, gait not assessed secondary to fall risk PSYCHIATRIC: Appropriate mood and affect; insight and judgment normal. - Constitutional no acute distress - Routine HEENT Exam Head: Present: normocephalic Eye: Present: EOMI Results - Labs CBC & Chem 7: 08/06/18 02:40 08/06/18 02:40 Labs: Laboratory Results - last 24 hr 08/05/18 08/05/18 08/05/18 12:40 12:40 12:40 WBC 7.2 RBC 4.46 L Hgb 14.5 Hct 43.3 MCV 97.0 MCH 32.6 MCHC 33.6 RDW 14.0 Plt Count 229 MPV 7.8 Neut % (Auto) 78.4 H Lymph % (Auto) 11.2 Ida % (Auto) 7.3 Eos % (Auto) 2.8 Baso % (Auto) 0.3 Neut # (Auto) 5.7 Lymph # (Auto) 0.8 L Ida # (Auto) 0.5 Eos # (Auto) 0.2 Baso # (Auto) 0.0 WBC Differential . Differential Comment Auto diff final PT Cancelled INR Cancelled APTT Sodium 139 Potassium 4.9 Chloride 104 Carbon Dioxide 28.4 Anion Gap 7 BUN 22 H Creatinine 1.16 Estimated GFR 61 L POC Glucose Random Glucose 96 Calcium 8.7 Total Bilirubin 2.1 H AST 21 ALT 20 Alkaline Phosphatase 143 H Total Creatine Kinase 59 Troponin I Less than 0.02 L B-Natriuretic Peptide Total Protein 7.4 Albumin 3.7 Vitamin B12 TSH Urine Color Urine Clarity Urine pH Ur Specific [place] Urine Protein Urine Glucose (UA) Urine Ketones Urine Occult Blood Urine Nitrate Urine Bilirubin Urine Urobilinogen Ur Leukocyte Esterase Urine RBC Urine WBC Ur Squamous Epith Cells Hyaline Casts Urine Mucus Micro UA Comment Ur Microscopic Review Urine Culture Comments 08/05/18 08/05/18 08/05/18 12:40 12:40 12:40 WBC RBC Hgb Hct MCV MCH MCHC RDW Plt Count MPV Neut % (Auto) Lymph % (Auto) Ida % (Auto) Eos % (Auto) Baso % (Auto) Neut # (Auto) Lymph # (Auto) Ida # (Auto) Eos # (Auto) Baso # (Auto) WBC Differential Differential Comment PT 23.4 H INR 2.3 APTT 31.5 H Sodium Potassium Chloride Carbon Dioxide Anion Gap BUN Creatinine Estimated GFR POC Glucose Random Glucose Calcium Total Bilirubin AST ALT Alkaline Phosphatase Total Creatine Kinase Troponin I B-Natriuretic Peptide 204 H Total Protein Albumin Vitamin B12 TSH 3.010 Urine Color Urine Clarity Urine pH Ur Specific [place] Urine Protein Urine Glucose (UA) Urine Ketones Urine Occult Blood Urine Nitrate Urine Bilirubin Urine Urobilinogen Ur Leukocyte Esterase Urine RBC Urine WBC Ur Squamous Epith Cells Hyaline Casts Urine Mucus Micro UA Comment Ur Microscopic Review Urine Culture Comments 08/05/18 08/05/18 08/05/18 13:53 18:28 20:00 WBC RBC Hgb Hct MCV MCH MCHC RDW Plt Count MPV Neut % (Auto) Lymph % (Auto) Ida % (Auto) Eos % (Auto) Baso % (Auto) Neut # (Auto) Lymph # (Auto) Ida # (Auto) Eos # (Auto) Baso # (Auto) WBC Differential Differential Comment PT INR APTT Sodium Potassium Chloride Carbon Dioxide Anion Gap BUN Creatinine Estimated GFR POC Glucose 141 H Random Glucose Calcium Total Bilirubin AST ALT Alkaline Phosphatase Total Creatine Kinase Troponin I Less than 0.02 L B-Natriuretic Peptide Total Protein Albumin Vitamin B12 TSH Urine Color Yellow Urine Clarity Clear Urine pH 6.0 Ur Specific [place] 1.014 Urine Protein Negative Urine Glucose (UA) Negative Urine Ketones Trace H Urine Occult Blood Small H Urine Nitrate Negative Urine Bilirubin Negative Urine Urobilinogen Less than 2 Ur Leukocyte Esterase Negative Urine RBC Less than 1 Urine WBC 1 Ur Squamous Epith Cells <1 Hyaline Casts 3 Urine Mucus Few H Micro UA Comment Culture not ind Ur Microscopic Review Not Reportable Urine Culture Comments Culture not ind 08/06/18 08/06/18 08/06/18 02:40 02:40 02:40 WBC 8.1 RBC 4.37 L Hgb 14.3 Hct 41.8 MCV 95.7 MCH 32.8 MCHC 34.3 RDW 14.1 Plt Count 207 MPV 8.0 Neut % (Auto) 72.7 H Lymph % (Auto) 14.6 Ida % (Auto) 8.0 Eos % (Auto) 4.2 H Baso % (Auto) 0.5 Neut # (Auto) 5.9 Lymph # (Auto) 1.2 Ida # (Auto) 0.6 Eos # (Auto) 0.3 Baso # (Auto) 0.0 WBC Differential . Differential Comment Auto diff final PT INR APTT Sodium 141 Potassium 4.8 Chloride 104 Carbon Dioxide 28.4 Anion Gap 9 BUN 22 H Creatinine 1.15 Estimated GFR 62 L POC Glucose Random Glucose 87 Calcium 8.7 Total Bilirubin 2.0 H AST 17 ALT 7 L Alkaline Phosphatase 129 H Total Creatine Kinase Troponin I Less than 0.02 L B-Natriuretic Peptide Total Protein 6.9 Albumin 3.4 Vitamin B12 373 TSH Urine Color Urine Clarity Urine pH Ur Specific [place] Urine Protein Urine Glucose (UA) Urine Ketones Urine Occult Blood Urine Nitrate Urine Bilirubin Urine Urobilinogen Ur Leukocyte Esterase Urine RBC Urine WBC Ur Squamous Epith Cells Hyaline Casts Urine Mucus Micro UA Comment Ur Microscopic Review Urine Culture Comments 08/06/18 08/06/18 02:40 03:26 WBC RBC Hgb Hct MCV MCH MCHC RDW Plt Count MPV Neut % (Auto) Lymph % (Auto) Ida % (Auto) Eos % (Auto) Baso % (Auto) Neut # (Auto) Lymph # (Auto) Ida # (Auto) Eos # (Auto) Baso # (Auto) WBC Differential Differential Comment PT 19.4 H INR 1.9 APTT Sodium Potassium Chloride Carbon Dioxide Anion Gap BUN Creatinine Estimated GFR POC Glucose 78 Random Glucose Calcium Total Bilirubin AST ALT Alkaline Phosphatase Total Creatine Kinase Troponin I B-Natriuretic Peptide Total Protein Albumin Vitamin B12 TSH Urine Color Urine Clarity Urine pH Ur Specific [place] Urine Protein Urine Glucose (UA) Urine Ketones Urine Occult Blood Urine Nitrate Urine Bilirubin Urine Urobilinogen Ur Leukocyte Esterase Urine RBC Urine WBC Ur Squamous Epith Cells Hyaline Casts Urine Mucus Micro UA Comment Ur Microscopic Review Urine Culture Comments - Imaging Impressions Chest X-Ray 08/05/18 12:29 CONCLUSION: 1. Cardiomegaly. 2. No evidence of pulmonary edema or focal pulmonary infiltrate. 3. Degenerative changes and scoliosis of the thoracic spine. Head CT 08/05/18 12:29 CONCLUSION: 1. No acute infarct, acute hemorrhage, midline shift or extra-axial fluid collections. 2. Moderate periventricular and subcortical white matter small vessel ischemic changes bilaterally. 3. CSF collection within the midline of the posterior fossa posteriorly which is stable and may represent a small arachnoid cyst or prominent cisterna magna. . Abdomen/Pelvis CT 08/05/18 14:06 CONCLUSION: 1. Negative for acute traumatic injury. 2. Degenerative changes in the lower lumbar spine 3. Prominent prostate with trabeculated bladder. Chest CT 08/05/18 14:06 CONCLUSION: 1. No pneumothorax. 2. Clustered nodularity in the lingula and medial right middle lobe, likely infectious/inflammatory process. 3. Right atrial enlargement. 4. Minimal anterior wedging of the T12 vertebral body, which can be physiologic. 5. Additional details as above. Review/Management - Diagnosis (1) Parkinson disease Code(s): G20 - Parkinson's disease Status: Acute Current Visit: Yes (2) Hypertension Code(s): I10 - Essential (primary) hypertension Status: Acute Current Visit : Yes (3) Pre-syncope Code(s): R55 - Syncope and collapse Status: Acute Current Visit: Yes (4) Orthostatic hypotension Code(s): I95.1 - Orthostatic hypotension Status: Acute Current Visit: Yes - Review/Management Plan: Symptoms suspicious for orthostatic hypotension however has been noted to be hypertensive since arrival. 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
--- NOTE | 2018-08-06 13:24 | P.PN ---
Subjective Interval history: Follow up on patient with dizziness, recent fall. Patient seen and examined. Patient states he is doing ok and wants to know when he can be discharged. He denies any complaints this morning. He denies any dizziness, headache, lightheadedness, numbness/tingling or weakness. He denies any chest pain or dyspnea. He denies any nausea, vomiting or abdominal pain. Physical Exam Vital signs: Vital Signs 08/05/18 14:20 08/05/18 16:30 08/05/18 19:51 Temperature 98.2 F Pulse Rate 72 73 65 Respiratory Rate 16 16 18 Blood Pressure 124/66 159/75 H 89/55 L Pulse Oximetry 100 100 97 08/06/18 00:00 08/06/18 03:23 08/06/18 03:58 Temperature 97.4 F L 98.0 F Pulse Rate 69 61 70 Respiratory Rate 18 16 18 Blood Pressure 154/81 H 185/111 H 178/92 H Pulse Oximetry 97 96 100 08/06/18 04:31 08/06/18 08:00 08/06/18 12:00 Temperature 97.6 F 98.3 F Pulse Rate 67 72 68 Respiratory Rate 14 16 16 Blood Pressure 145/80 H 177/114 H 166/79 H Pulse Oximetry 100 94 L 98 Intake & Output 08/05/18 08/06/18 08/06/18 18:59 06:59 18:59 Intake Total 1580 / 1580 250 / 250 Output Total 350 / 350 200 / 200 Balance 1230 / 1230 250 / 250 -200 / -200 Weight 66 kg Intake: IV 1100 / 1100 250 / 250 NS Inj 1,000 ML @ 100 mls/hr IV 1000 / 1000 .CONT .Q10H [facility] Rx#:[id number] Azithromycin Inj 500 MG In NS 250 / 250 Inj 250 ML @ 250 mls/hr IV.SIG Q24H [facility] Rx#:[id number] Rocephin Inj 1,000 MG In NS Inj 100 / 100 100 ML @ 200 mls/hr IV.SIG Q24H [facility] Rx#:[id number] Oral 480 / 480 Output: Urine 350 / 350 200 / 200 Other: # Voids 1 Weight On Admission 65.771 kg Narrative: GENERAL: WDWN elderly male, INAD. Awake and alert. Appears comfortable. is at the bedside. SKIN: Warm and dry. No rash. HEAD: Atraumatic. Normocephalic. No facial asymmetry. EYES: Pupils equal and round. No scleral icterus. No injection or drainage. ENT: No nasal bleeding or discharge. Mucous membranes pink and moist. NECK: Trachea midline. CARDIOVASCULAR: Regular rate and rhythm. RESPIRATORY: No accessory muscle use. Clear to auscultation. Breath sounds equal bilaterally. GASTROINTESTINAL: Abdomen soft, non-tender, nondistended. BS normal. MUSCULOSKELETAL: Extremities without clubbing, cyanosis, or edema. No obvious deformities. NEUROLOGICAL: Awake and alert. No obvious cranial nerve deficits. Motor grossly within normal limits. Able to move all extremities spontaneously. Dysphonic speech. PSYCHIATRIC: Appropriate mood and affect; insight and judgment normal. Results - Labs CBC & Chem 7: 08/06/18 02:40 08/06/18 02:40 Laboratory Results - last 24 hr 08/05/18 08/05/18 08/05/18 12:40 12:40 12:40 WBC RBC Hgb Hct MCV MCH MCHC RDW Plt Count MPV Neut % (Auto) Lymph % (Auto) [place] % (Auto) Eos % (Auto) Baso % (Auto) Neut # (Auto) Lymph # (Auto) [place] # (Auto) Eos # (Auto) Baso # (Auto) WBC Differential Differential Comment PT INR Sodium 139 Potassium 4.9 Chloride 104 Carbon Dioxide 28.4 Anion Gap 7 BUN 22 H Creatinine 1.16 Estimated GFR 61 L POC Glucose Random Glucose 96 Calcium 8.7 Total Bilirubin 2.1 H AST 21 ALT 20 Alkaline Phosphatase 143 H Total Creatine Kinase 59 Troponin I Less than 0.02 L B-Natriuretic Peptide 204 H Total Protein 7.4 Albumin 3.7 Vitamin B12 TSH 3.010 Urine Color Urine Clarity Urine pH Ur Specific [place] Urine Protein Urine Glucose (UA) Urine Ketones Urine Occult Blood Urine Nitrate Urine Bilirubin Urine Urobilinogen Ur Leukocyte Esterase Urine RBC Urine WBC Ur Squamous Epith Cells Hyaline Casts Urine Mucus Micro UA Comment Ur Microscopic Review Urine Culture Comments 08/05/18 08/05/18 08/05/18 13:53 18:28 20:00 WBC RBC Hgb Hct MCV MCH MCHC RDW Plt Count MPV Neut % (Auto) Lymph % (Auto) [place] % (Auto) Eos % (Auto) Baso % (Auto) Neut # (Auto) Lymph # (Auto) [place] # (Auto) Eos # (Auto) Baso # (Auto) WBC Differential Differential Comment PT INR Sodium Potassium Chloride Carbon Dioxide Anion Gap BUN Creatinine Estimated GFR POC Glucose 141 H Random Glucose Calcium Total Bilirubin AST ALT Alkaline Phosphatase Total Creatine Kinase Troponin I Less than 0.02 L B-Natriuretic Peptide Total Protein Albumin Vitamin B12 TSH Urine Color Yellow Urine Clarity Clear Urine pH 6.0 Ur Specific [place] 1.014 Urine Protein Negative Urine Glucose (UA) Negative Urine Ketones Trace H Urine Occult Blood Small H Urine Nitrate Negative Urine Bilirubin Negative Urine Urobilinogen Less than 2 Ur Leukocyte Esterase Negative Urine RBC Less than 1 Urine WBC 1 Ur Squamous Epith Cells <1 Hyaline Casts 3 Urine Mucus Few H Micro UA Comment Culture not ind Ur Microscopic Review Not Reportable Urine Culture Comments Culture not ind 08/06/18 08/06/18 08/06/18 02:40 02:40 02:40 WBC 8.1 RBC 4.37 L Hgb 14.3 Hct 41.8 MCV 95.7 MCH 32.8 MCHC 34.3 RDW 14.1 Plt Count 207 MPV 8.0 Neut % (Auto) 72.7 H Lymph % (Auto) 14.6 [place] % (Auto) 8.0 Eos % (Auto) 4.2 H Baso % (Auto) 0.5 Neut # (Auto) 5.9 Lymph # (Auto) 1.2 [place] # (Auto) 0.6 Eos # (Auto) 0.3 Baso # (Auto) 0.0 WBC Differential . Differential Comment Auto diff final PT INR Sodium 141 Potassium 4.8 Chloride 104 Carbon Dioxide 28.4 Anion Gap 9 BUN 22 H Creatinine 1.15 Estimated GFR 62 L POC Glucose Random Glucose 87 Calcium 8.7 Total Bilirubin 2.0 H AST 17 ALT 7 L Alkaline Phosphatase 129 H Total Creatine Kinase Troponin I Less than 0.02 L B-Natriuretic Peptide Total Protein 6.9 Albumin 3.4 Vitamin B12 373 TSH Urine Color Urine Clarity Urine pH Ur Specific [place] Urine Protein Urine Glucose (UA) Urine Ketones Urine Occult Blood Urine Nitrate Urine Bilirubin Urine Urobilinogen Ur Leukocyte Esterase Urine RBC Urine WBC Ur Squamous Epith Cells Hyaline Casts Urine Mucus Micro UA Comment Ur Microscopic Review Urine Culture Comments 08/06/18 08/06/18 02:40 03:26 WBC RBC Hgb Hct MCV MCH MCHC RDW Plt Count MPV Neut % (Auto) Lymph % (Auto) [place] % (Auto) Eos % (Auto) Baso % (Auto) Neut # (Auto) Lymph # (Auto) [place] # (Auto) Eos # (Auto) Baso # (Auto) WBC Differential Differential Comment PT 19.4 H INR 1.9 Sodium Potassium Chloride Carbon Dioxide Anion Gap BUN Creatinine Estimated GFR POC Glucose 78 Random Glucose Calcium Total Bilirubin AST ALT Alkaline Phosphatase Total Creatine Kinase Troponin I B-Natriuretic Peptide Total Protein Albumin Vitamin B12 TSH Urine Color Urine Clarity Urine pH Ur Specific [place] Urine Protein Urine Glucose (UA) Urine Ketones Urine Occult Blood Urine Nitrate Urine Bilirubin Urine Urobilinogen Ur Leukocyte Esterase Urine RBC Urine WBC Ur Squamous Epith Cells Hyaline Casts Urine Mucus Micro UA Comment Ur Microscopic Review Urine Culture Comments - Imaging Impressions Chest X-Ray 08/05/18 12:29 CONCLUSION: 1. Cardiomegaly. 2. No evidence of pulmonary edema or focal pulmonary infiltrate. 3. Degenerative changes and scoliosis of the thoracic spine. Head CT 08/05/18 12:29 CONCLUSION: 1. No acute infarct, acute hemorrhage, midline shift or extra-axial fluid collections. 2. Moderate periventricular and subcortical white matter small vessel ischemic changes bilaterally. 3. CSF collection within the midline of the posterior fossa posteriorly which is stable and may represent a small arachnoid cyst or prominent cisterna magna. . Abdomen/Pelvis CT 08/05/18 14:06 CONCLUSION: 1. Negative for acute traumatic injury. 2. Degenerative changes in the lower lumbar spine 3. Prominent prostate with trabeculated bladder. Chest CT 08/05/18 14:06 CONCLUSION: 1. No pneumothorax. 2. Clustered nodularity in the lingula and medial right middle lobe, likely infectious/inflammatory process. 3. Right atrial enlargement. 4. Minimal anterior wedging of the T12 vertebral body, which can be physiologic. 5. Additional details as above. Assessment and Plan - Plan 78-year-old male with past medical history of Parkinson's disease and atrial fibrillation who is presenting to the hospital with dizziness and falls. Dizziness/ Falls/ Parkinsons The patient endorses increased dizziness and falls recently. Likely a manifestation of his autonomic instability from his Parkinson's disease. Could also be secondary to medications, atrial fibrillation, uncontrolled HTN or bradycardia, orthostatic hypotension. EKG with A fib, rate controlled, no acute ischemia. Troponins neg x 3 -Consult neurology, appreciate assistance -obtain echocardiogram and carotid US -telemetry -neuro checks. 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 Chaudhry, appreciate assistance Pneumonia Chest CT shows clustered nodularity in the lingular and medial right middle lobe , likely infectious Patients reports cold like symptoms at home -on IV Ceftriaxone and Azithromycin, continue -IS and acapella -monitor respiratory status -supplemental oxygen as needed A fib Rate controlled at this time. INR therapeutic at admit, now 1.9 -continue Coumadin. Pharmacy assisting with dosing. -telemetry. -continue metoprolol, monitor for bradycardia. HTN Uncontrolled. Wide fluctuations in blood pressure likely contributing to dizziness. -continue home regimen of metoprolol and monitor. -Vasotec as needed. PPx: Coumadin Discussed Condition With: patient, nursing staff, Dr. Sapp Discharge Planning: Not ready for discharge
--- NOTE | 2018-08-06 14:37 | ECG ---
Date Performed: 08/05/2018 Time Performed: 13:24:54 PTAGE: 78 years EKG: ATRIAL FIBRILLATION LEFT POSTERIOR FASCICULAR BLOCK ANTEROLATERAL MYOCARDIAL INFARCTION ABN ORMAL ECG Since the PREVIOUS TRACING , no significant change noted PREVIOUS TRACIN08/05/2018 12.43 DOCTOR: Sivan Green Interpretating Date/Time 08/06/2018 14:32:07
--- NOTE | 2018-08-06 14:37 | ECG ---
Date Performed: 08/05/2018 Time Performed: 12:43:35 PTAGE: 78 years EKG: ATRIAL FIBRILLATION ANTERIOR MYOCARDIAL INFARCTION ABNORMAL ECG Since the PREVIOUS TRACING , no significant change noted PREVIOUS TRACIN06/20/2013 10.41 DOCTOR: Sivan Green Interpretating Date/Time 08/09/2018 08:47:24
--- NOTE | 2018-08-06 17:35 | US ---
EXAM DATE: 08/06/2018 5:29 PM EDT AGE/SEX: 78 years / Male INDICATIONS: Transient ischemic attack. CLINICAL DATA: This is the patient's initial encounter. Patient reports that signs and symptoms have been present for 1 day and indicates a pain score of 0/10. MEDICAL/SURGICAL HISTORY: . Benign prostatic hyperplasia. Hypertension. Parkinson disease. . Right hip replacement. COMPARISON: No prior exams available for comparison. VELOCITY PARAMETERS: ICA/CCA Ratio: Right 0.9 , Left 0.9 ICA: Right 77 cm/sec, Left 69 cm/sec CCA: Right 81 cm/sec, Left 80 cm/sec ECA: Right 97 cm/sec, Left 80 cm/sec Vertebral: Right 43 cm/sec antegrade, Left 40 cm/sec antegrade FINDINGS: Antegrade flow is seen in both vertebral arteries. There is mild atherosclerotic plaquing at the origin of both ICAs without any significant stenosis. Elevated flow velocities and ICA/CCA ratios have been found to correlate with increased degrees of vessel stenosis, calculated as percentage of diameter relative to a normal segment of distal ICA. CONCLUSION: No evidence for hemodynamically significant stenosis. Electronically signed by: Kalpana Vaughn MD 08/06/2018 5:33 PM EDT
[2018-08-06] MEDS: Azithromycin Inj 500 MG in Sodium Chlor 0.9% Inj 250 ML IV.SIG SCH (18:47)
[2018-08-07 08:37] VITALS: TEMP 98.1
[2018-08-07 08:47] LABS: INR 1.4 Ratio; Prothrombin Time 14.1 sec (9.8-11.6)
--- NOTE | 2018-08-07 10:09 | P.CONCA ---
History of Present Illness Service: Cardiology Reason for Consult: Dizziness, orthostatic hypotension Primary Care Provider: UNKNOWN Family Provider: Pepe Lechuga MD Chief Complaint: Dizziness History of Present Illness: The patient is a 78-year-old male with past medical history of Parkinson's disease and atrial fibrillation. Here for complaints of dizziness and falls. He says he has been having increased falls over the past couple of months. He reports feeling dizzy and unsteady prior to his falls. He denies any syncopal episodes. He follows regularly with Dr. Dhillon. He admits to mild SOB over the past couple of months. Denies any chest pain. Review of Systems Constitutional: Reports weight loss Respiratory: Reports shortness of breath with activity Neurologic: Reports frequent falls, Reports lack of coordination, Reports localized weakness, Reports unsteadiness, Reports weakness PMFSH - History History Provided By: Patient - Medical History Medical History: Medical History (Last Reviewed 08/06/18 @ 06:26 by Cara Aden) Afib BPH (benign prostatic hyperplasia) Hypertension Parkinson disease - Surgical History Surgical History: Surgical History (Last Reviewed 08/06/18 @ 06:26 by Cara Aden) History of right hip replacement - Family History Family History: Family History (Last Reviewed 08/06/18 @ 06:26 by Cara Aden) Other CAD (coronary artery disease) Cervical cancer Ovarian cancer - Social History I have reviewed the patient's Social History: Yes - Tobacco History Second Hand Smoke Exposure: No Tobacco Use In Past 30 Days: No Smoking Status: Never smoker - Alcohol History How Often Do You Have a Drink Containing Alcohol: Monthly or less - Substance Use History Substance History: No History of Abuse - Travel History Recent Travel in the [place] Within the Last 8 Weeks: No Recent Travel Out of the Country Within the Last 8 Weeks: No - Immunization History Tetanus Immunization: Unsure Hx Influenza Vaccine This Season: Yes Medications and Allergies Active Medications: Active Medications Acetaminophen (Tylenol) 650 mg PO Q4H PRN PRN Reason: Temp > 100.4, pain 1-5 Azithromycin (Zithromax) 500 mg PO DAILY [facility] Carbidopa/Levodopa (Sinemet 25/100 Mg) 1 tab PO QID [facility] Last Admin: 08/07/18 09:19 Dose: 1 tab Cyanocobalamin (Vitamin B12) 1,000 mcg PO DAILY [facility] Last Admin: 08/07/18 09:20 Dose: 1,000 mcg Enalaprilat (Vasotec Inj) 1.25 mg IV.PUSH Q6H PRN PRN Reason: SBP> OR = 180, DBP> OR = 100 Last Admin: 08/06/18 03:33 Dose: 1.25 mg Metoprolol Succinate (Toprol Xl) 75 mg PO DAILY [facility] Last Admin: 08/07/18 09:18 Dose: 75 mg Miscellaneous (Pill Splitter) 1 each OTHER UNSCH PRN PRN Reason: SEE LABEL COMMENTS Pharmacy Profile Note (Coumadin Consult Pharmacy) 1 each OTHER UNSCH PRN PRN Reason: PHARMACY DOCUMENTATION Tamsulosin HCl (Flomax) 0.4 mg PO DAILY [facility] Last Admin: 08/06/18 12:41 Dose: 0.4 mg Thiamine HCl (Vitamin B1) 50 mg PO DAILY [facility] Last Admin: 08/07/18 09:19 Dose: 50 mg Warfarin Sodium (Coumadin) 3 mg PO DAILY@1600 [facility] Last Admin: 08/06/18 18:27 Dose: 3 mg Allergies Allergy/AdvReac Type Severity Reaction Status Date / Time No Known Allergies Allergy Uncoded 08/16/17 11:14 Home Medications Medication Instructions Recorded Confirmed Type carbidopa-levodopa 1 tab PO QID 08/05/18 08/05/18 History furosemide 20 mg PO DAILY 08/05/18 08/05/18 History metoprolol succinate 1.5 tab PO DAILY 08/05/18 08/05/18 History spironolactone 25 mg PO DAILY 08/05/18 08/05/18 History tamsulosin 0.4 mg PO DAILY 08/05/18 08/05/18 History thiamine HCl (vitamin B1) 50 mg PO DAILY 08/05/18 08/05/18 History warfarin 2.5 mg PO 3XW 08/05/18 08/05/18 History warfarin 3 mg PO 4XW 08/05/18 08/05/18 History Exam Vital signs: Vital Signs 08/06/18 12:00 08/06/18 15:50 08/06/18 20:00 Temperature 98.3 F 97.8 F 97.4 F L Pulse Rate 68 78 65 Respiratory Rate 16 14 16 Blood Pressure 166/79 H 116/71 167/86 H Pulse Oximetry 98 99 100 08/07/18 00:00 08/07/18 04:00 08/07/18 08:00 Temperature 98.6 F 98.7 F 98.1 F Pulse Rate 62 81 90 Respiratory Rate 16 16 16 Blood Pressure 187/86 H 181/97 H 211/127 H Pulse Oximetry 99 99 96 Intake & Output 08/06/18 08/07/18 08/07/18 18:59 06:59 18:59 Intake Total 1830 / 1830 Output Total 200 / 200 450 / 450 Balance -200 / -200 1380 / 1380 Intake: IV 1350 / 1350 NS Inj 1,000 ML @ 100 mls/hr IV 1000 / 1000 .CONT .Q10H [facility] Rx#:[id number] Azithromycin Inj 500 MG In NS 250 / 250 Inj 250 ML @ 250 mls/hr IV.SIG Q24H [facility] Rx#:[id number] Rocephin Inj 1,000 MG In NS Inj 100 / 100 100 ML @ 200 mls/hr IV.SIG Q24H [facility] Rx#:[id number] Oral 480 / 480 Output: Urine 200 / 200 450 / 450 Other: # Voids 1 # Bowel Movements 2 - Constitutional no acute distress - Routine HEENT Exam Head: Present: normocephalic Eye: Present: normal accommodation ENT: Present: mucous membranes moist - Routine Neck Exam Present: supple - Routine Respiratory Exam Present: CTA bilaterally - Routine Cardiovascular Exam Present: irregularly irregular - Routine Skin Exam Present: intact - Routine Neurological Exam Present: alert, oriented X3 Results 08/06/18 02:40 08/06/18 02:40 Cardiac Enzymes 08/05/18 08/05/18 08/05/18 Range/Units 12:40 12:40 20:00 AST 21 (15-37) U/L Troponin I Less than 0.02 L Less than 0.02 L (0.02-0.05) ng/mL B-Natriuretic Peptide 204 H (0-100) pg/mL 08/06/18 08/06/18 Range/Units 02:40 02:40 AST 17 (15-37) U/L Troponin I Less than 0.02 L (0.02-0.05) ng/mL B-Natriuretic Peptide (0-100) pg/mL Coagulation 08/05/18 08/05/18 08/05/18 Range/Units 12:40 12:40 12:40 PT Cancelled 23.4 H APTT 31.5 H (24.3-30.1) sec B-Natriuretic Peptide 204 H (0-100) pg/mL 08/06/18 08/07/18 Range/Units 02:40 08:20 PT 19.4 H 14.1 H APTT (24.3-30.1) sec B-Natriuretic Peptide (0-100) pg/mL CBC 08/05/18 08/06/18 Range/Units 12:40 02:40 WBC 7.2 8.1 (4.0-11.0) th/mm3 RBC 4.46 L 4.37 L (4.50-5.90) mil/mm3 Hgb 14.5 14.3 (13.0-17.0) gm/dL Hct 43.3 41.8 (39.0-51.0) % Plt Count 229 207 (150-450) th/mm3 Neut # (Auto) 5.7 5.9 (1.8-7.7) th/mm3 Lymph # (Auto) 0.8 L 1.2 (1.0-4.8) th/mm3 [place] # (Auto) 0.5 0.6 (0.0-0.9) th/mm3 Eos # (Auto) 0.2 0.3 (0.0-0.4) th/mm3 Baso # (Auto) 0.0 0.0 (0.0-0.2) th/mm3 Comprehensive Metabolic Panel 08/05/18 08/06/18 Range/Units 12:40 02:40 Sodium 139 141 (136-145) meq/L Potassium 4.9 4.8 (3.5-5.1) meq/L Chloride 104 104 (98-107) meq/L Carbon Dioxide 28.4 28.4 (21.0-32.0) meq/L BUN 22 H 22 H (7-18) mg/dL Creatinine 1.16 1.15 (0.60-1.30) mg/dL Calcium 8.7 8.7 (8.5-10.1) mg/dL AST 21 17 (15-37) U/L ALT 20 7 L (12-78) U/L Alkaline Phosphatase 143 H 129 H (45-117) U/L Total Protein 7.4 6.9 (6.4-8.2) g/dL Albumin 3.7 3.4 (3.4-5.0) g/dL Intake and Output 08/06/18 08/07/18 08/07/18 22:59 06:59 14:59 Intake Total 1350 / 1350 480 / 480 Output Total 450 / 450 Balance 1350 / 1350 30 / 30 Intake: IV 1350 / 1350 NS Inj 1,000 ML @ 100 mls/hr IV 1000 / 1000 .CONT .Q10H [facility] Rx#:[id number] Azithromycin Inj 500 MG In NS 250 / 250 Inj 250 ML @ 250 mls/hr IV.SIG Q24H [facility] Rx#:[id number] Rocephin Inj 1,000 MG In NS Inj 100 / 100 100 ML @ 200 mls/hr IV.SIG Q24H [facility] Rx#:[id number] Oral 480 / 480 Output: Urine 450 / 450 Other: # Bowel Movements 2 - Imaging and Cardiology Imaging: Impressions Chest X-Ray 08/05/18 12:29 CONCLUSION: 1. Cardiomegaly. 2. No evidence of pulmonary edema or focal pulmonary infiltrate. 3. Degenerative changes and scoliosis of the thoracic spine. Head CT 08/05/18 12:29 CONCLUSION: 1. No acute infarct, acute hemorrhage, midline shift or extra-axial fluid collections. 2. Moderate periventricular and subcortical white matter small vessel ischemic changes bilaterally. 3. CSF collection within the midline of the posterior fossa posteriorly which is stable and may represent a small arachnoid cyst or prominent cisterna magna. . Abdomen/Pelvis CT 08/05/18 14:06 CONCLUSION: 1. Negative for acute traumatic injury. 2. Degenerative changes in the lower lumbar spine 3. Prominent prostate with trabeculated bladder. Chest CT 08/05/18 14:06 CONCLUSION: 1. No pneumothorax. 2. Clustered nodularity in the lingula and medial right middle lobe, likely infectious/inflammatory process. 3. Right atrial enlargement. 4. Minimal anterior wedging of the T12 vertebral body, which can be physiologic. 5. Additional details as above. Carotid Doppler Study 08/06/18 00:00 CONCLUSION: No evidence for hemodynamically significant stenosis. Assessment and Plan - Plan Assessment Orthostatic hypotension Parkinsons Disease Atrial fibrillation Plan -Patient is having hypertension when lying down and hypotension when standing. Ranges from 104/52 to 211/127, Probably secondary to autonomic dysfunction. Advised to increase salt intake and hydrate with electrolyte rich fluids such as Gatorade or Powerade. Will continue on beta tiffany. -He may benefit from rehab or balance exercises outpatient. -Increased fall risk. Discussed risk of bleeding verses the risk of stroke with patient. INR is 1.4 today. Will need to increase his dose today to 6mg and then resume regular schedule. Will need INR check in the next 2-3 days. Patient is stable from a cardiac standpoint for discharge home. Advised to see Dr. Dhillon in 1 week. The patient was seen and evalauted by Dr. Green who participated in care, management and decision making.
--- NOTE | 2018-08-07 11:07 | P.PNNEU ---
Subjective Subjective Comments: no cp, no dyspnea, no noel, no focal weakness, no vision loss, no dizziness feels well wants to go home Active Medications: Active Medications Acetaminophen (Tylenol) 650 mg PO Q4H PRN PRN Reason: Temp > 100.4, pain 1-5 Azithromycin (Zithromax) 500 mg PO Q24H [facility] Carbidopa/Levodopa (Sinemet 25/100 Mg) 1 tab PO QID [facility] Last Admin: 08/07/18 09:19 Dose: 1 tab Cyanocobalamin (Vitamin B12) 1,000 mcg PO DAILY [facility] Last Admin: 08/07/18 09:20 Dose: 1,000 mcg Enalaprilat (Vasotec Inj) 1.25 mg IV.PUSH Q6H PRN PRN Reason: SBP> OR = 180, DBP> OR = 100 Last Admin: 08/06/18 03:33 Dose: 1.25 mg Metoprolol Succinate (Toprol Xl) 75 mg PO DAILY [facility] Last Admin: 08/07/18 09:18 Dose: 75 mg Miscellaneous (Pill Splitter) 1 each OTHER UNSCH PRN PRN Reason: SEE LABEL COMMENTS Pharmacy Profile Note (Coumadin Consult Pharmacy) 1 each OTHER UNSCH PRN PRN Reason: PHARMACY DOCUMENTATION Tamsulosin HCl (Flomax) 0.4 mg PO DAILY [facility] Last Admin: 08/06/18 12:41 Dose: 0.4 mg Thiamine HCl (Vitamin B1) 50 mg PO DAILY [facility] Last Admin: 08/07/18 09:19 Dose: 50 mg Warfarin Sodium (Coumadin) 3 mg PO DAILY@1600 [facility] Last Admin: 08/06/18 18:27 Dose: 3 mg Allergies/Adverse Reactions: Allergies Allergy/AdvReac Type Severity Reaction Status Date / Time No Known Allergies Allergy Uncoded 08/16/17 11:14 Review of Systems All other systems reviewed negative except as stated in HPI Physical Exam Vital signs: Vital Signs 08/06/18 12:00 08/06/18 15:50 08/06/18 20:00 Temperature 98.3 F 97.8 F 97.4 F L Pulse Rate 68 78 65 Respiratory Rate 16 14 16 Blood Pressure 166/79 H 116/71 167/86 H Pulse Oximetry 98 99 100 08/07/18 00:00 08/07/18 04:00 08/07/18 08:00 Temperature 98.6 F 98.7 F 98.1 F Pulse Rate 62 81 90 Respiratory Rate 16 16 16 Blood Pressure 187/86 H 181/97 H 211/127 H Pulse Oximetry 99 99 96 Intake & Output 08/06/18 08/07/18 08/07/18 18:59 06:59 18:59 Intake Total 1830 / 1830 Output Total 200 / 200 450 / 450 Balance -200 / -200 1380 / 1380 Intake: IV 1350 / 1350 NS Inj 1,000 ML @ 100 mls/hr IV 1000 / 1000 .CONT .Q10H [facility] Rx#:[id number] Azithromycin Inj 500 MG In NS 250 / 250 Inj 250 ML @ 250 mls/hr IV.SIG Q24H [facility] Rx#:[id number] Rocephin Inj 1,000 MG In NS Inj 100 / 100 100 ML @ 200 mls/hr IV.SIG Q24H [facility] Rx#:[id number] Oral 480 / 480 Output: Urine 200 / 200 450 / 450 Other: # Voids 1 # Bowel Movements 2 Narrative: GENERAL: in NAD, SKIN: Warm and dry. HEAD: Atraumatic. Normocephalic. EYES: Pupils equal and round. No scleral icterus. ENT: No nasal bleeding or discharge. Mucous membranes pink and moist. NECK: Trachea midline. No JVD. CARDIOVASCULAR: Regular rate and rhythm. RESPIRATORY: No accessory muscle use. GASTROINTESTINAL: Abdomen soft, non-tender, nondistended. MUSCULOSKELETAL: Extremities without clubbing, cyanosis, or edema. No obvious deformities. NEUROLOGICAL: Awake and alert. Oriented 3, dysphonic speech facial hypomimia no aphasia, fluent articulate, No facial asymmetry, OU 3-2mm, eomi, VFF, No drift, Motor grossly within normal limits. Five out of 5 muscle strength in the arms and legs. No tremors. tone normal in all 4 limbs, Sensory normal in all 4 extermities to pin, msr 1-2+ sym, no clonus, planterflexor, gait not assessed secondary to fall risk PSYCHIATRIC: Appropriate mood and affect; insight and judgment normal. - Constitutional no acute distress - Routine HEENT Exam Head: Present: normocephalic Eye: Present: EOMI Objective Laboratory Results - last 24 hr 08/06/18 08/07/18 08/07/18 20:43 01:00 07:01 PT INR POC Glucose 79 90 84 08/07/18 08:20 PT 14.1 H INR 1.4 POC Glucose Microbiology 08/06/18 20:30 Legionella Antigen - Final Urine - Clean Catch Urine Presumptive negative for Legionella pneumophila serogroup 1 antigen in urine, suggesting no recent or recurrent infection. Infection due to Legionella cannot be ruled out since other serogroups and species may cause disease, antigen may not be present in urine in early infection, and the level of antigen present in the urine may be below the detection limit of the test. 08/06/18 20:30 Streptococcus pneumoniae Antigen (M - Final Urine - Clean Catch Urine Presumptive negative for streptococcus pneumoniae antigen, suggesting no current or recent infection. Infection due to Streptococcus pneumoniae cannot be ruled out since the antigen present in the sample may be below the detection limit of the test. Review/Management - Diagnosis (1) Parkinson disease Code(s): G20 - Parkinson's disease Status: Acute Current Visit: Yes (2) Hypertension Code(s): I10 - Essential (primary) hypertension Status: Acute Current Visit : Yes (3) Pre-syncope Code(s): R55 - Syncope and collapse Status: Acute Current Visit: Yes (4) Orthostatic hypotension Code(s): I95.1 - Orthostatic hypotension Status: Acute Current Visit: Yes - Review/Management Plan: Symptoms suspicious for orthostatic hypotension however has been noted to be hypertensive since arrival. 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 Therapeutic INR No driving until seen in the outpatient setting
[2018-08-07 11:46] VITALS: PULSE 89; RESP 14; O2SAT 97
--- NOTE | 2018-08-07 13:40 | P.PN ---
Subjective Interval history: Follow up on patient with dizziness, recent fall. Patient seen and examined. Patient reports he feels good. States he got up early this morning to go to the bathroom and did not have any dizziness. He denies any fever or chills. Denies any cough, chest pain or shortness of breath. Denies any nausea, vomiting or abdominal pain. Physical Exam Vital signs: Vital Signs 08/06/18 15:50 08/06/18 20:00 08/07/18 00:00 Temperature 97.8 F 97.4 F L 98.6 F Pulse Rate 78 65 62 Respiratory Rate 14 16 16 Blood Pressure 116/71 167/86 H 187/86 H Pulse Oximetry 99 100 99 08/07/18 04:00 08/07/18 08:00 08/07/18 11:46 Temperature 98.7 F 98.1 F 98.1 F Pulse Rate 81 90 89 Respiratory Rate 16 16 14 Blood Pressure 181/97 H 211/127 H 182/90 H Pulse Oximetry 99 96 97 Intake & Output 08/06/18 08/07/18 08/07/18 18:59 06:59 18:59 Intake Total 1830 / 1830 Output Total 200 / 200 450 / 450 Balance -200 / -200 1380 / 1380 Intake: IV 1350 / 1350 NS Inj 1,000 ML @ 100 mls/hr IV 1000 / 1000 .CONT .Q10H [facility] Rx#:[id number] Azithromycin Inj 500 MG In NS 250 / 250 Inj 250 ML @ 250 mls/hr IV.SIG Q24H [facility] Rx#:[id number] Rocephin Inj 1,000 MG In NS Inj 100 / 100 100 ML @ 200 mls/hr IV.SIG Q24H [facility] Rx#:[id number] Oral 480 / 480 Output: Urine 200 / 200 450 / 450 Other: # Voids 1 # Bowel Movements 2 Narrative: GENERAL: WDWN elderly male, INAD. Awake and alert. Appears comfortable. SKIN: Warm and dry. HEAD: Atraumatic. Normocephalic. No facial asymmetry. EYES: Pupils equal and round. No scleral icterus. No injection or drainage. ENT: No nasal bleeding or discharge. Mucous membranes pink and moist. NECK: Trachea midline. CARDIOVASCULAR: Regular rate and rhythm. RESPIRATORY: No accessory muscle use. Clear to auscultation. Breath sounds equal bilaterally. GASTROINTESTINAL: Abdomen soft, non-tender, nondistended. BS normal. MUSCULOSKELETAL: Extremities without clubbing, cyanosis, or edema. No obvious deformities. NEUROLOGICAL: Awake and alert. No obvious cranial nerve deficits. Motor grossly within normal limits. Able to move all extremities spontaneously. Dysphonic speech. PSYCHIATRIC: Appropriate mood and affect; insight and judgment normal. Results - Labs CBC & Chem 7: 08/06/18 02:40 08/06/18 02:40 Laboratory Results - last 24 hr 08/06/18 08/07/18 08/07/18 20:43 01:00 07:01 PT INR POC Glucose 79 90 84 08/07/18 08/07/18 08:20 13:11 PT 14.1 H INR 1.4 POC Glucose 82 Microbiology 08/06/18 20:30 Urine - Clean Catch Urine Legionella Antigen - Final Presumptive negative for Legionella pneumophila serogroup 1 antigen in urine, suggesting no recent or recurrent infection. Infection due to Legionella cannot be ruled out since other serogroups and species may cause disease, antigen may not be present in urine in early infection, and the level of antigen present in the urine may be below the detection limit of the test. 08/06/18 20:30 Urine - Clean Catch Urine Streptococcus pneumoniae Antigen ( M - Final Presumptive negative for streptococcus pneumoniae antigen, suggesting no current or recent infection. Infection due to Streptococcus pneumoniae cannot be ruled out since the antigen present in the sample may be below the detection limit of the test. - Imaging Impressions Carotid Doppler Study 08/06/18 00:00 CONCLUSION: No evidence for hemodynamically significant stenosis. Assessment and Plan - Plan 78-year-old male with past medical history of Parkinson's disease and atrial fibrillation who is presenting to the hospital with dizziness and falls. Dizziness/ Falls/ Parkinsons The patient endorses increased dizziness and falls recently. Likely a manifestation of his autonomic instability from his Parkinson's disease. Could also be secondary to medications, atrial fibrillation, uncontrolled HTN or bradycardia, orthostatic hypotension. EKG with A fib, rate controlled, no acute ischemia. Troponins neg x 3 Carotid US neg -Neurology following, cleared for discharge. Recommended trial of clonidine. No driving until evaluated by neurologist in the outpatient setting. -echo done/results pending -telemetry -neuro checks. -fall precautions -PT/OT -continue on Sinemet Orthostatic Hypotension BP dropped from 138/100 to 111/70, lying to standing -Discussed slow transitions, use of KAL hose and abdominal binder -Only treat standing BP -Evaluated by cardiology, likely drops in blood pressure due to autonomic dysfunction. Advised to increase salt intake and hydrate with electrolyte rich fluids. Continue on beta-tiffany. Recommended continuing Coumadin. Patient cleared for discharge from cardiac standpoint. Pneumonia Chest CT shows clustered nodularity in the lingular and medial right middle lobe , likely infectious Patients reports cold like symptoms at home -on IV Ceftriaxone and Azithromycin, transition to po abx at discharge -IS and acapella -monitor respiratory status -supplemental oxygen as needed A fib Rate controlled at this time. INR therapeutic at admit, now 1.4 -continue Coumadin. Pharmacy assisting with dosing. Recommended by cardiology to take an additional 3 mg dose today. Recheck INR in 2-3 days. -telemetry -continue metoprolol HTN Uncontrolled. Wide fluctuations in blood pressure likely contributing to dizziness. -continue home regimen of metoprolol and monitor. Trial of Clonidine. -Vasotec as needed. PPx: Coumadin Discharge patient to home Condition on discharge: Stable Patient cleared for discharg from both neurologic and cardiac standpoint without results of echocardiogram Heart healthy Diet as tolerated Ad Tiara activity -discussed multiple times importance of slow transitions, use of KAL hose and abdominal binder. Rx written: Clonidine Follow-up with primary care physician, registered nurse cardiovascular icu and neurologist Discussed Condition With: patient, nursing staff, , Dr. Sapp, February [facility] cardiology and Dr. Tran
[2018-08-07 14:29] VITALS: BP 143/76
--- NOTE | 2018-08-07 14:38 | P.DS ---
Date of admission: 08/05/18 16:38 Primary care physician: UNKNOWN Attending physician on discharge: Su Sapp Anticipated date of discharge: 08/07/18 Brief History from admission: The patient is a 78-year-old male with past medical history of Parkinson's disease and atrial fibrillation who is presenting to the hospital with dizziness and falls. He says he has been having increased falling episodes over the past couple of months. He says he generally has a sensation of dizziness before falling down to the ground. He does not endorse passing out. The past couple of nights he has had falls where he goes down to his knees. He also hit his head and the left side of his body. He says he still has moderate pain where he hit his back and head. He says recently his legs have been giving way. He does follow with a neurologist. He says he also follows with a psychiatric technician who recently adjusted one of his medications. The patient denies any recent travel. He does endorse shortness of breath over the past couple of months. He does endorse a cough recently. He denies any mucus production or fever. Discussed with his family at the bedside. Also discussed with nursing. Patient update on day of discharge: Follow up on patient with dizziness, recent fall. Patient seen and examined. Patient reports he feels good. States he got up early this morning to go to the bathroom and did not have any dizziness. He denies any fever or chills. Denies any cough, chest pain or shortness of breath. Denies any nausea, vomiting or abdominal pain. DS: Diagnosis - Discharge Diagnosis (1) Autonomic dysfunction Status: Acute (2) Pneumonia Status: Acute (3) Pre-syncope Status: Acute (4) Orthostatic hypotension Status: Acute (5) Fall Status: Acute (6) Parkinson disease Status: Acute (7) Hypertension Status: Acute DS: Medications - Discharge Medications Prescriptions: azithromycin 500 mg PO Q24H #6 tab clonidine HCl 0.1 mg PO BID #60 tab DS: Summary Hospital Course: Patient admitted with dizziness and falls felt likely to be due in part to autonomic instability from his Parkinson's disease. Head CT showed no acute infarct or hemorrhage. Patient was noted to have pneumonia by chest CT and started on IV ceftriaxone and azithromycin. Orthostatic blood pressure measurements were positive. Cardiac enzymes were negative 3. Carotid doppler study was negative. Patient was seen in consultation by neurology. Discussed importance of slow transitions, use of KAL hose and abdominal binder. Evaluated by cardiology, likely drops in blood pressure due to autonomic dysfunction. Patient improved clinically. Advised to increase salt intake and hydrate with electrolyte rich fluids. Continue on beta-tiffany. Recommended continuing Coumadin. Patient cleared for discharge from cardiac standpoint. Patient was cleared from neurology standpoint. IV antibiotics were transitioned to oral. Echocardiogram was done but results were pending at the time of discharge. Both neurology and cardiology cleared patient from their perspective without echocardiogram results. Patient was advised to follow-up with PCP, psychiatric technician and his neurologist following discharge. He was instructed to follow-up with repeat INR study in 2-3 days. He was advised no driving until evaluated by neurologist in the outpatient setting. - Time Spent with Patient Total time spent providing and/or coordinating discharge services: Greater than 30 minutes - Quality: VTE Deep Vein Thrombosis/Pulmonary Embolism Present on Admission: No Exam Vital signs: Vital Signs 08/06/18 15:50 08/06/18 20:00 08/07/18 00:00 Temperature 97.8 F 97.4 F L 98.6 F Pulse Rate 78 65 62 Respiratory Rate 14 16 16 Blood Pressure 116/71 167/86 H 187/86 H Pulse Oximetry 99 100 99 08/07/18 04:00 08/07/18 08:00 08/07/18 11:46 Temperature 98.7 F 98.1 F 98.1 F Pulse Rate 81 90 89 Respiratory Rate 16 16 14 Blood Pressure 181/97 H 211/127 H 182/90 H Pulse Oximetry 99 96 97 Intake & Output 08/06/18 08/07/18 08/07/18 18:59 06:59 18:59 Intake Total 1830 / 1830 Output Total 200 / 200 450 / 450 Balance -200 / -200 1380 / 1380 Intake: IV 1350 / 1350 NS Inj 1,000 ML @ 100 mls/hr IV 1000 / 1000 .CONT .Q10H [facility] Rx#:[id number] Azithromycin Inj 500 MG In NS 250 / 250 Inj 250 ML @ 250 mls/hr IV.SIG Q24H [facility] Rx#:[id number] Rocephin Inj 1,000 MG In NS Inj 100 / 100 100 ML @ 200 mls/hr IV.SIG Q24H [facility] Rx#:[id number] Oral 480 / 480 Output: Urine 200 / 200 450 / 450 Other: # Voids 1 # Bowel Movements 2 Narrative: GENERAL: WDWN elderly male, INAD. Awake and alert. Appears comfortable. SKIN: Warm and dry. HEAD: Atraumatic. Normocephalic. No facial asymmetry. EYES: Pupils equal and round. No scleral icterus. No injection or drainage. ENT: No nasal bleeding or discharge. Mucous membranes pink and moist. NECK: Trachea midline. CARDIOVASCULAR: Regular rate and rhythm. RESPIRATORY: No accessory muscle use. Clear to auscultation. Breath sounds equal bilaterally. GASTROINTESTINAL: Abdomen soft, non-tender, nondistended. BS normal. MUSCULOSKELETAL: Extremities without clubbing, cyanosis, or edema. No obvious deformities. NEUROLOGICAL: Awake and alert. No obvious cranial nerve deficits. Motor grossly within normal limits. Able to move all extremities spontaneously. Dysphonic speech. PSYCHIATRIC: Appropriate mood and affect; insight and judgment normal. Results Procedures completed during hospitalization: None Labs on day of discharge: Labs from last 24 hours 08/07/18 08/07/18 08/07/18 13:11 08:20 07:01 PT 14.1 H INR 1.4 POC Glucose 82 84 08/07/18 08/06/18 01:00 20:43 PT INR POC Glucose 90 79 - Impressions ITS Impressions Chest X-Ray 08/05/18 12:29 CONCLUSION: 1. Cardiomegaly. 2. No evidence of pulmonary edema or focal pulmonary infiltrate. 3. Degenerative changes and scoliosis of the thoracic spine. Head CT 08/05/18 12:29 CONCLUSION: 1. No acute infarct, acute hemorrhage, midline shift or extra-axial fluid collections. 2. Moderate periventricular and subcortical white matter small vessel ischemic changes bilaterally. 3. CSF collection within the midline of the posterior fossa posteriorly which is stable and may represent a small arachnoid cyst or prominent cisterna magna. . Abdomen/Pelvis CT 08/05/18 14:06 CONCLUSION: 1. Negative for acute traumatic injury. 2. Degenerative changes in the lower lumbar spine 3. Prominent prostate with trabeculated bladder. Chest CT 08/05/18 14:06 CONCLUSION: 1. No pneumothorax. 2. Clustered nodularity in the lingula and medial right middle lobe, likely infectious/inflammatory process. 3. Right atrial enlargement. 4. Minimal anterior wedging of the T12 vertebral body, which can be physiologic. 5. Additional details as above. Carotid Doppler Study 08/06/18 00:00 CONCLUSION: No evidence for hemodynamically significant stenosis. Discharge Plan - Discharge Disposition Patient Disposition: 01 Discharge Home - Discharge Condition Condition: Stable - Discharge Order Discharge Orders: Discharge Order (Routine); Ordered 08/07/18 Ordered By: Alma Burrows - Discharge Details Anticipated Discharge Date: 08/07/18 Discharge Comment: Discharge pending improvement in blood pressure - Physicians Team Primary Care Provider: UNKNOWN, Attending Provider: Su Sapp Other Providers: Sivan Green MD ; Tay Tran MD
--- NOTE | 2018-08-07 16:39 | ECHRPT ---
Indication: CVA/TIA CONCLUSIONS Normal left ventricular size. Wall thickness is measured at the upper limits of normal. The left ventricular systolic function is normal with an estimated ejection fraction in the range of 55-60%. The right atrial size is hntlprfc-[id number]-selszwrj dilated. Mild thickening of the mitral valve leaflets. Moderate thickening of the aortic valve leaflets. Aortic valve mean gradient is 8.5 mmHg. Pzlk-bz-jywjmpdl aortic valve regurgitation. There is at least moderate tricuspid valve regurgitation. The estimated pulmonary arterial pressure is 42.6 mmHg. mild to moderate mitral valve regurgitation BP: / HR: Rhythm: Atrial fibrillation, Atrial flut ter MEASUREMENTS (Male / Female) Normal Values Technical Quality:Fair 2D ECHO LV Diastolic Diameter PLAX 4.4 cm 4.2 - 5.9 / 3.9 - 5.3 cm LV Systolic Diameter PLAX 3.3 cm IVS Diastolic Thickness 1.0 cm 0.6 - 1.0 / 0.6 - 0.9 cm LVPW Diastolic Thickness 1.0 cm 0.6 - 1.0 / 0.6 - 0.9 cm LV Relative Wall Thickness 0.5 RV Internal Dim ED PLAX 2.4 cm LVOT Diameter 2.1 cm Aortic Root Diameter 3.5 cm LA Systolic Diameter LX 3.9 cm 3.0 - 4.0 / 2.7 - 3.8 cm M-MODE AV Cusp Separation MM 1.0 cm DOPPLER AV Peak Velocity 197.8 cm/s AV Peak Gradient 15.6 mmHg AV Mean Gradient 8.5 mmHg AV Velocity Time Integral 38.8 cm LVOT Peak Velocity 61.7 cm/s LVOT Peak Gradient 1.5 mmHg LVOT Velocity Time Integral 11.8 cm AV Area Cont Eq vti 1.1 cm AV Area Cont Eq pk 1.1 cm Mitral E Point Velocity 85.7 cm/s LV E' Lateral Velocity 11.1 cm/s Mitral E to LV E' Lateral Ratio 7.8 LV E' Septal Velocity 7.8 cm/s Mitral E to LV E' Septal Ratio 10.9 TR Peak Velocity 285.7 cm/s TR Peak Gradient 32.6 mmHg Right Atrial Pressure 10.0 mmHg Pulmonary Artery Systolic Pressu 42.6 mmHg Right Ventricular Systolic Press 42.6 mmHg PV Peak Velocity 65.4 cm/s PV Peak Gradient 1.7 mmHg FINDINGS LEFT VENTRICLE Normal left ventricular size. Wall thickness is measured at the upper limits of normal. The left ventricular systolic function is normal with an estimated ejection fraction in the range of 55-60%. RIGHT VENTRICLE Normal right ventricular size and systolic function. LEFT ATRIUM The left atrial size is normal. RIGHT ATRIUM The right atrial size is tchucieg-ny-mmcrbdep dilated. ATRIAL SEPTUM No atrial level shunt is demonstrated by color flow Doppler interrogation. AORTA The aortic root and proximal ascending aorta are not well visualized. MITRAL VALVE Mild thickening of the mitral valve leaflets. AORTIC VALVE Moderate thickening of the aortic valve leaflets. Aortic valve mean gradient is 8.5 mmHg. Uzzb-vr-sbkimsuc aortic valve regurgitation. TRICUSPID VALVE There is mild to moderate tricuspid valve regurgitation. The estimated pulmonary arterial pressure is 42.6 mmHg. PULMONARY VALVE No pulmonary valve regurgitation or stenosis. VESSELS The inferior vena cava is normal in size. PERICARDIUM No pericardial effusion. Joseph Camilo MD, FACC, [facility] [place] (Electronically Signed) Final Date:07 August 2018 16:39
[2018-08-07] MEDS ORDERED: Azithromycin 250 MG Tablet PO SCH (18:00)
== END 2018-08-07 15:33 | disposition home or self-care (01) ==
LOC: NEPE 12:13 → NEDA 12:13 → NEPGCP 17:40
PROVIDERS: ADMIT Family Medicine; ATTEND Family Medicine